=== PATIENT | male | born 1960 | race Caucasian/White ===

== ENCOUNTER 2022-03-14 13:27 | Observation (INO) | payer MEDICAID, SELFPAY ==
[2022-03-14] VITALS (18 sets, daily range): BP systolic 145–186; BP diastolic 82–119; PULSE 20–90; RESP 16–24; TEMP 36.4–37.1; O2SAT 92–98; BMI 32.8; BMI 29.6
--- NOTE | 2022-03-14 | ECG_ITS ---
APPROVED REPORT Exam: Resting ECG HR:69 bpm ECG Measurements Heart Rate 69 AXES RI 188 P 17 QRSd 119 QRS 1 QT 458 T -2 QTc 478 Conclusion SINUS RHYTHM POSSIBLE LEFT VENTRICULAR HYPERTROPHY LAE LAD Lateral ischemic changes Abnormal ECG Electronically signed by : Og Vega MD 03/15/2022 16:49:32
--- NOTE | 2022-03-14 13:47 | XR_ITS ---
FINAL REPORT TECHNIQUE: Single view chest CLINICAL HISTORY: Midsternal chest pain FINDINGS: A single view of the chest was obtained. The heart and mediastinum are within normal limits. There are mild bibasilar opacities which may represent pneumonia or atelectasis. There is no pneumothorax. There is a right 4th posterior rib fracture which is age indeterminate. IMPRESSION: Mild bibasilar opacities which may represent pneumonia or atelectasis. Age-indeterminate right 4th posterior rib fracture. No pneumothorax. Reviewed, Interpreted and Dictated by Helio Dee III, MD Transcribed by Deborah Serna Authenticated and . [facility]
[2022-03-14 14:00] LABS: Anion Gap 13.2 mEq/L (5-15); Blood Urea Nitrogen 17 mg/dl (9-20); Carbon Dioxide 31 mmol/L (22.0-30.0); Chloride 99 mmol/L (98-107); Creatinine Clearance Estimated 105 mL/min (50-200); Estimated Glomerular Filt Rate 76 ml/min (>60); GFR (African American) 92 ML/MIN (>60); Glucose 121 mg/dl (74-100); Potassium 4.2 mmoL/L (3.5-5.1); Sodium 139 mmol/L (136-145)
[2022-03-14 14:09] LABS: Basophils # 0.1 K/mm3 (0-0.2); Eosinophils # 0.3 K/mm3 (0.0-0.4); Eosinophils % 3.7 % (0.1-12.0); Hematocrit 40.1 % (42.0-52.0); Hemoglobin 13.1 g/dL (14.1-18.0); Lymphocytes # 0.7 K/mm3 (0.7-4.5); Lymphocytes % 10.4 % (10-50); Mean Corpuscular HGB Conc 32.8 g/dL (31.8-35.4); Mean Corpuscular Hemoglobin 28.4 pg (27.0-31.2); Mean Corpuscular Volume 86.7 fl (80-94); Mean Platelet Volume 9.4 fl (7.4-10.4); Monocytes # 0.5 K/mm3 (0.1-1.0); Monocytes % 7.7 % (1.7-9.3); Neutrophils # 5.4 K/mm3 (1.8-7.8); Neutrophils % 76.2 % (37.0-80.0); Platelet Count 157 K/mm3 (142-424); Red Blood Count 4.62 M/mm3 (4.60-6.20); Red Cell Distribution Width 14.9 % (11.5-17.5)
[2022-03-14 14:20] LABS: Troponin I < 0.01 ng/ml (0.00-0.034)
--- NOTE | 2022-03-14 15:49 | HMH.EDGENADL ---
Discharge Plan Disposition Patient Disposition: Admitted As Inpatient Condition: Fair Clinical Impressions Clinical Impression: Acute exacerbation of chronic obstructive pulmonary disease, Chest pain, Bilateral pleural effusion, Acute respiratory failure with hypoxia, CHF (congestive heart failure), Hypertension, uncontrolled Discharge ED Provider: Kirk Villegas General Adult HPI General Chief complaint: Chest Pain Stated complaint: chest pain Time Seen by Provider: 03/14/22 15:49 Mode of Arrival: Ambulatory Source of Information: Patient Limitations: No Limitations Description of Symptoms (Recalled from ER Triage Doc. by RN): pt to ed c/o chest pain. pt reports the pain is localized in his chest. pt states he has been having intermittent pain x1 week. pt reports mild shortness of breath. History of Present Illness HPI narrative: The patient complains of shortness of breath, chest pain, rhinorrhea, cough, states I have pneumonia . He is basing this upon his symptoms, he has not had tests. States that he has been sick for 1 week. His nose runs constantly and he coughs constantly. He does not know if he has had a fever. He has diffuse anterior chest pain and shortness of breath. He states that he had half of his right lung cut out 3 months ago at [facility] in [place] for cancer. He says he has not required any other treatment for the cancer, he says they were first going to see whether comes back before any other treatment is entertained. He is a smoker and has COPD. He has inhalers at home but not a nebulizer and is not on oxygen. He says he has a prior history of coronary artery disease with 2 stents. He has hypertension and hyperlipidemia. He says he just recently moved to this city, previously was living in [place] until 2 weeks ago. He does not have any care providers here in town. States he has chronic swelling of his legs, no recent change in leg swelling or leg pain. No hemoptysis. Related Data Allergies Allergy/AdvReac Type Severity Reaction Status Date / Time No Known Allergies Allergy Verified 03/14/22 13:47 [facility] Disclaimer: The information contained in this section may have been updated after the patient was seen, as this information can be updated by other users. Medical History (Updated 03/14/22 @ 20:31 by Kirk Villegas MD) CAD (coronary artery disease) CHF (congestive heart failure) COPD (chronic obstructive pulmonary disease) Lung cancer Tobacco abuse Surgical History (Updated 03/14/22 @ 20:05 by Pb Adan DNP) History of percutaneous coronary intervention Status post lobectomy of lung Social History (Updated 03/14/22 @ 20:17 by Pb Adan DNP) Smoking Status: Never smoker alcohol intake: never current occupational status: previously employed Travel in the last 8 weeks: None ROS Obtained: Yes Systems reviewed as appropriate & no additional complaints except as documented Constitutional Constitutional: Denies fever(s), Denies headache(s) and Denies weakness ENT Ears, Nose, Mouth, and Throat: Denies headache(s), Reports nasal discharge and Denies sore throat Cardiovascular Cardiovascular: Reports chest pain and Reports edema Respiratory Respiratory: Reports shortness of breath and Reports cough Gastrointestinal Gastrointestingal: Denies abdominal pain, constipation, diarrhea or vomiting Genitourinary Male Genitourinary: Denies difficulty urinating and Denies flank pain Musculoskeletal Musculoskeletal: Denies numbness Neurologic Neurologic: Denies headache(s), Denies numbness and Denies weakness Physical Exam General General appearance: alert and in no apparent distress Comment: Frequent cough Head Head exam: atraumatic and normocephalic Eye Eye exam: Present normal appearance and EOMI ENT ENT exam: Present mucous membranes moist Neck Neck exam: Present normal inspection and trachea midline Chest Chest inspection: Present normal inspe
--- NOTE | 2022-03-14 16:01 | CT_ITS ---
PROCEDURE INFORMATION: Exam: CTA Chest With Contrast Exam date and time: 03/14/2022 4:13 PM Age: 61 years old Clinical indication: Shortness of breath; Other: Chest pain; Prior surgery; Additional info: Cp, SOA, lung surgery 3 mo ago TECHNIQUE: Imaging protocol: Computed tomographic angiography of the chest with contrast. 3D rendering (Not supervised by radiologist): MIP and/or 3D reconstructed images were created by the technologist. Radiation optimization: All CT scans at this facility use at least one of these dose optimization techniques: automated exposure control; mA and/or kV adjustment per patient size (includes targeted exams where dose is matched to clinical indication); or iterative reconstruction. Contrast material: ISOVUE; Contrast volume: 70 ml; Contrast route: INTRAVENOUS (IV); COMPARISON: CR XR CHEST PORTABLE 03/14/2022 2:32 PM FINDINGS: Pulmonary arteries: No evidence of pulmonary embolism. Aorta: No evidence of aortic dissection. Lungs: Atelectatic changes noted within both lung bases. No focal pneumonia or pneumothorax. Pleural spaces: Bilateral pleural effusions, greater on the left. There is no evidence of pneumothorax. Pleural calcification noted within the lung bases bilaterally. Heart: Heart demonstrates mild diffuse enlargement. Coronary arteries: There is mild atherosclerotic calcification of the coronary arteries. Lymph nodes: Unremarkable. No enlarged lymph nodes. Bones/joints: The thoracic spine demonstrates mild degenerative changes at multiple levels. Healing fracture of the right posterior 4th rib. Soft tissues: There is nonspecific gynecomastia. IMPRESSION: 1. No evidence of pulmonary embolism. 2. No evidence of aortic dissection. 3. Mild cardiomegaly. 4. Bilateral pleural effusions, greater on the left. 5. Atelectatic changes noted within both lung bases. 6. There is no evidence of pneumothorax. 7. No focal pneumonia or pneumothorax.
[2022-03-14 16:10] LABS: Alanine Aminotransferase 13 U/L (12-78); Albumin Level 4.4 g/dl (3.5-5.0); Alkaline Phosphatase 115 U/L (38-126); Aspartate Amino Transferase 23 U/L (17-59); Bilirubin,Direct 0.2 mg/dl (0.0-0.4); Bilirubin,Indirect 0.4 mg/dL (0.0-0.9); Bilirubin,Total 0.6 mg/dl (0.2-1.3); Bilirubin,Unconjugated 0.4 mg/dL (0.0-1.1)
--- NOTE | 2022-03-14 16:54 | PC.NURSE ---
lab coming to draw cultures and lactic
[2022-03-14 17:38] LABS: Lactic Acid 0.9 mmol/L (0.7-2.1)
[2022-03-14 17:40] LABS: Coronavirus 19, PCR Not Detected (NotDetected); Influenza A, PCR Not Detected (NotDetected); Influenza B, PCR Not Detected (NotDetected)
[2022-03-14 17:50] LABS: Troponin I 0.02 ng/ml (0.00-0.034)
[2022-03-14 19:40] LABS: NT Pro Brain Natriuretic Pep. 2850 pg/mL (0-125)
[2022-03-14 19:44] LABS: Troponin I 0.02 ng/ml (0.00-0.034)
--- NOTE | 2022-03-14 19:55 | EXP.HP ---
History of Present Illness *Admission Date: 03/14/22 *Reason for visit:: Cough, shortness of air, runny nose *History of present illness: Mr. Sanabria is a 61-year-old male with a reported history of COPD, not home oxygen depdent, chronic tobacco use, reports recent diagnosis of Lung CA, sp removal right lung lobe, CAD, CHF. He presents to [facility] due to cough, runny nose, subjective fevers and chest pain that he reports has been ongoing for 1 week. He denies similar known sick contacts. He reports he has been taking multiple over the counter cough and cold medications with no improvement of symptoms. In the ER the patient had CBC and CMP that were unremarkable, covid and flu testing were negative. He was initially noted to be 96 % on room air, but dropped into the 80's during treatment and required 2L oxygen. He had a CT of the chest that showed bilateral pleural effusions greatest on the left. BNP was elevated at 2850. EKG showed NSR with BBB with no ST segment elevation or depression, rate was 69. Troponin was within normal limits at 0.02. In the ER he was given Rocephin, Azithromycin, nebulizers, steroids, diuretic. Blood pressure was elevated at 182/104. He received a dose of Labetalol 20 mg iv. The patient will be admitted with initial impression: AECOPD. He will be continued on the current treatment as started in the ER, sputum will be ordered. Viral respiratory panel. Records will be requested from [facility]. The plan of care was discussed with the patient on admission. The patient verbalized understanding and agreement with the plan of care. [facility] Disclaimer: The information contained in this section may have been updated after the patient was seen, as this information can be updated by other users. Medical History (Updated 03/15/22 @ 03:27 by Rosa Maria Ayala RN) CAD (coronary artery disease) CHF (congestive heart failure) COPD (chronic obstructive pulmonary disease) History of substance abuse Lung cancer Seizure disorder Tobacco abuse Surgical History History of colonoscopy History of percutaneous coronary intervention History of tracheostomy Status post lobectomy of lung Family History (Updated 03/14/22 @ 23:23 by Rosa Maria Aayla RN) No significant family history Social History (Updated 03/15/22 @ 03:27 by Rosa Maria Ayala RN) Smoking Status: Current every day smoker tobacco type: cigarettes packs per day: 1 smoking status start date: current smoker years smoked: 50 quit status: has quit before alcohol intake: never substance use type: former substance user counseling given: No (pt stated it was years ago and didnt want to bring it up ) current occupational status: previously employed Travel in the last 8 weeks: None marital status: single special justo needs: No agree to transfusion: No Review of Systems Review of Systems Review of systems:: pertinent systems reviewed and negative unless documented below Constitutional Constitutional: Reports fatigue and Reports fever(s) Eyes Eyes: Reports system reviewed and no additional complaints, except as documented ENT Ears, Nose, Mouth, and Throat: Reports nasal discharge *Cardiovascular Cardiovascular: Reports chest pain *Respiratory Respiratory: Reports chest congestion, Reports cough and Reports wheezing *Gastrointestinal Gastrointestinal: Reports system reviewed and no additional complaints, except as documented *Genitourinary Genitourinary: Reports system reviewed and no additional complaints, except as documented *Musculoskeletal Musculoskeletal: Reports system reviewed and no additional complaints, except as documented Integumentary/Breasts Skin/Breast: Reports system reviewed and no additional complaints, except as documented *Neurologic Neurologic: Reports system reviewed and no additional complaints, except as documented Psy
[2022-03-14 20:41] LABS: Adenovirus,PCR Not Detected (NotDetected); Bordetella Pertussis Not Detected (NotDetected); Chlamydophila Pneumoniae, PCR Not Detected (NotDetected); Coronavirus 19, PCR Not Detected (NotDetected); Coronavirus 229E Not Detected (NotDetected); Coronavirus NL63 Not Detected (NotDetected); Coronavirus OC43 Not Detected (NotDetected); Coronovirus HKU1,PCR Not Detected (NotDetected); Human Metapneumovirus Not Detected (NotDetected); Influenza A, PCR Not Detected (NotDetected); Influenza AH1, 2009 Not Detected (NotDetected); Influenza AH1, PCR Not Detected (NotDetected); Influenza AH3,PCR Not Detected (NotDetected); Influenza B, PCR Not Detected (NotDetected); Mycoplasma Pneumoniae, PCR Not Detected (NotDetected); Parainfluenza 1, PCR Not Detected (NotDetected); Parainfluenza 2, PCR Not Detected (NotDetected); Parainfluenza 3, PCR Not Detected (NotDetected); Parainfluenza 4, PCR Not Detected (NotDetected); Respiratory Syncytial Virus Not Detected (NotDetected)
--- NOTE | 2022-03-14 20:45 | PC.NURSE ---
pt arrived to floor via wheelchair @ 2040
--- NOTE | 2022-03-14 22:30 | PC.NURSE ---
pt not a good historian, pt was unable to verbalize what meds he is taking and stated he did not know the names of all of them, list obtained from outside pharmacy source and compared to an old list given by pt, list was from 01/22/22, reviewed last refills from outside pharmacy source.
[2022-03-15] VITALS (7 sets, daily range): BP systolic 124–127; BP diastolic 72–76; PULSE 70–90; RESP 16–18; TEMP 37; O2SAT 93–95; BMI 29.9
[2022-03-15 00:36] LABS: Rhinovirus/Enterovirus Detected (NotDetected)
--- NOTE | 2022-03-15 01:40 | PC.NURSE ---
sputum sent to lab, lab called and rejected as pt spit in medicine cup and placed in sterile cup.
--- NOTE | 2022-03-15 04:04 | PC.NURSE ---
PATIENT REFUSED FOR VITALS TO BE DONE . RN AWARE
--- NOTE | 2022-03-15 04:26 | PC.NURSE ---
noted pt 02 sats 89% while sleeping, 02 placed at 2L pnc at this time.
--- NOTE | 2022-03-15 05:50 | PC.NURSE ---
Addendum entered by Rosa Maria Ayala RN 03/15/22 05:55: telemetry reveals NSR with bbb, questionable inverted t wave. Original Note: pt admitted this shift, pt is alert and oriented x4, pt refused to have 4am v/s taken, pt is poor historian and med rec obtained from pharmacy via computer system, pt was unable to remember names of his med, list provided was unclear from pt, pt noted with bilateral wheezing audible, 02 sats were 88-89% on room air while sleeping, 02 placed at 2L during sleep, pt stated history if lung ca and lobectomy with tracheostomy placement, pt does not use 02 at home, bed alarm in place for history of falls, b/p 2400 was normotensive 145/82, pt with productive cough, awaiting sputum to send to lab, no other issues or concerns at this time.
--- NOTE | 2022-03-15 06:00 | CA_ITS ---
APPROVED REPORT EXAM: Comprehensive 2D, Doppler, and color-flow Echocardiogram [employer]venir [employer] Novelty Maker: Polly Pressley CRT Ht: 5 ft 7 in Wt: 210lbs BSA: 2.07 BP: 182/104 mmHg Indications: COPD, Shortness of Breath, bilateral pleural effusions, stent TDE poor images pt on back up in the bed 2D Dimensions LVOT 1.99 cm (M/F) 1.5-2.5 M-Mode Dimensions RVDd 3.95 cm (0.9-2.6) LA Diam 4.40 cm (1.9-4.0) LVDd 6.53 cm (3.5-5.7) Ao Diam 4.52 cm (2.0-3.7) LVDs 5.24 cm (3.5-5.7) IVSd 2.01 cm (0.6-1.1) PWd 0.85 cm (0.6-1.1) EF (Teich) 39.60% FS 19.80% EDV (Teich) 218.30 mL ESV (Teich) 131.80 mL LV Diastology MED E' 3.30 (< 7 cm/sec) MED A' 7.60 cm/s LAT E' 5.10 (<10 cm/sec) LAT A' 13.50 cm/s Aortic Valve AO Peak GR. 4.90 mmHg Left Ventricle Technically difficult study because of the patient factors and poor acoustic windows. Left atrium is mildly enlarged, left ventricle is normal size mild concentric left ventricular hypertrophy, estimated ejection fraction 50%, there is mild hypokinesis involving the distal septum and apical wall. Diastolic parameters are inconclusive. Right Ventricle Right atrium and right ventricle are mildly enlarged with normal contractility. Aortic Valve Aortic valve is minimally thickened and fibrosed there is no aortic stenosis aortic insufficiency. Mitral Valve Mitral valve has mitral annular calcification, there is no mitral stenosis, there is mild mitral regurgitation. Tricuspid Valve Tricuspid valve grossly normal, there is mild tricuspid regurgitation, tricuspid regurgitation jet velocity is inadequate for calculation of the right ventricular systolic pressure. Pulmonic Valve Pulmonic valve is poorly visualized. Great Vessels Aortic root is normal size. Inferior vena cava is poorly visualized. Pericardium No significant pericardial effusion noted. Conclusion 1. Technically difficult study because of the patient factors and poor acoustic windows. Mild biatrial enlargement, normal left ventricular size, estimated ejection fraction 50% with segmental wall motion abnormality described above. Diastolic parameters are inconclusive. 2. Mildly enlarged right ventricle with normal contractility. 3. Mild mitral and tricuspid regurgitation. 4. No significant pericardial effusion. 5. Inferior vena cava is poorly visualized. Electronically signed by : Stuart Geiger MD 03/15/2022 11:17:00
[2022-03-15 07:30] LABS: NT Pro Brain Natriuretic Pep. 3060 pg/mL (0-125)
--- NOTE | 2022-03-15 09:06 | HMH.PHAINT1 ---
Pharmacy Intervention Comments: MEDICATION RECONCILIATION COMPLETED ON PATIENT USING EXTERNAL FILL HISTORY FROM PHARMACY AND LUBNA REPORT. -NEYMAR GAMEZ, GALILEOD
--- NOTE | 2022-03-15 12:10 | PC.NURSE ---
pts suboxone x3 and heart monitor locked up in thread drawer pts room. pink med slip filed out an attached to pts report sheet. medication verified with [facility]
--- NOTE | 2022-03-15 14:43 | PC.NURSE ---
checked on pt around 1410, pt was standing at window dressed. no concerns voiced by pt. around 1430, pt was not in room and not on the floor. techs found pt on first floor walking inside. pt stated he went for a walk to stretch his legs and smoke a cigarette. advised pt to notify staff to ambulate and for safety reasons to remain on the floor at this time. pt cooperative and voiced understanding. no questions or concerns at this time. pt currently lying in bed bed watching tv, eating. cb within reach.
--- NOTE | 2022-03-15 15:01 | EXP.DC.SUM ---
General Admission date:: 03/14/22 Discharge date: 03/15/22 HPI HPI HPI: Mr. Sanabria is a 61-year-old male with a reported history of COPD, not home oxygen depdent, chronic tobacco use, reports recent diagnosis of Lung CA, sp removal right lung lobe, CAD, CHF. He presents to [facility] due to cough, runny nose, subjective fevers and chest pain that he reports has been ongoing for 1 week. He denies similar known sick contacts. He reports he has been taking multiple over the counter cough and cold medications with no improvement of symptoms. In the ER the patient had CBC and CMP that were unremarkable, covid and flu testing were negative. He was initially noted to be 96 % on room air, but dropped into the 80's during treatment and required 2L oxygen. He had a CT of the chest that showed bilateral pleural effusions greatest on the left. BNP was elevated at 2850. EKG showed NSR with BBB with no ST segment elevation or depression, rate was 69. Troponin was within normal limits at 0.02. In the ER he was given Rocephin, Azithromycin, nebulizers, steroids, diuretic. Blood pressure was elevated at 182/104. He received a dose of Labetalol 20 mg iv. The patient will be admitted with initial impression: AECOPD. He will be continued on the current treatment as started in the ER, sputum will be ordered. Viral respiratory panel. Records will be requested from [facility]. The plan of care was discussed with the patient on admission. The patient verbalized understanding and agreement with the plan of care. Hospital Course Hospital Course Hospital Course: 61-year-old male with reported history of COPD, not home oxygen dependent, chronic tobacco use, lung cancer, s/p lobectomy, CAD presents with one-week reports of cough, runny nose, subjective fevers and Shortness of air. Admitted for COPD exacerbation and new oxygen requirement. Symptoms defervesced overnight. On room air by morning. Ambulating without difficulty. Meeting criteria for discharge home to complete treatment for COPD exacerbation. Problems addressed as follows - COPD exacerbation In the ER the patient was documented in the 80's on room air. CT of the chest showed bilateral pleural effusions, diffuse wheezing on exam. Initiated on ceftriaxone and azithromycin. Tolerated nebulizers and steroids. Sputum culture obtained, pending at time of discharge. Respiratory PCR obtained showing positive for rhinovirus. Suspect etiology is viral for his COPD exacerbation. Satting 94% on room air on day of discharge. Plan to continue azithromycin for total of 5 days and steroids for 5 days. Initiated on Breo inhaler. Patient would benefit from establishing with PCP to manage his comorbidities. Will refer to [facility] primary care to establish as an outpatient. - Lung Cancer [facility], lobectomy in May 2021. Patient has done well since then. Continues to smoke however. Has not undergone any chemo or radiation since resection due to patient moving and being lost to care. Needs to be reestablished with [facility] for follow-up and further management. Defer to outpatient PCP - CHF, reported -Pleural effusions -CAD Echo obtained with the following findings: Conclusion 1.? Technically difficult study because of the patient factors and poor acoustic windows.? Mild biatrial enlargement, normal left ventricular size, estimated ejection fraction 50% with segmental wall motion abnormality described above.? Diastolic parameters are inconclusive. 2.? Mildly enlarged right ventricle with normal contractility. 3.? Mild mitral and tricuspid regurgitation. 4.? No significant pericardial effusion. 5.? Inferior vena cava is poorly visualized. -Diurese x1 during admission. Responded well. Patient already on goal-directed therapy for heart failure including anticoagulation therapy, JERMAINE, ARB, amiodarone, diuretic. Continue home regimen. Would benefi
--- NOTE | 2022-03-15 15:53 | HMH.PHAINT1 ---
Pharmacy Intervention Comments: DISCHARGE MEDICATION COUNSELING PROVIDED. DISCUSSED STARTING THE FOLLOWING: -AZITHROMYCIN (ANTIBIOTIC, DAILY, MAY CAUSE GI UPSET, TAKE WITH FOOD) -BREO (INHALER FOR SOB/COPD, DAILY, HAS STEROID IN IT SO RINSE MOUTH AFTER USE, MAY CAUSE THRUSH) -NICOTINE PATCH (DAILY, REMOVE OLD PATCH BEFORE PUTTING ON NEW ONE, ROTATE ADMIN SITES, MAY CAUSE BURN/SKIN IRRITATION IF PLACED REPEATEDLY ON SAME SITE, REMOVE PRIOR TO IMAGING) -PREDNISONE (STEROID, DAILY, TAKE WITH FOOD IN THE MORNING, MAY CAUSE INSOMNIA, HUNGER, THIRST, INCREASED BLOOD SUGAR). PATIENT VERBALIZED NO QUESTIONS AT THIS TIME.
--- NOTE | 2022-03-21 15:26 | CARE MANAGER ---
Contacted patient related to discharge from hospital. Patient went to follow up appointment and is doing better. Denies questions or concerns. MARCO Mason
== END 2022-03-15 16:07 | disposition home or self-care (01) ==
LOC: ER 19:40 → 2ND 21:21
PROVIDERS: Nurse Practitioner Family; Admitting Provider Internal Medicine Adolescent Medicine; Emergency Provider Emergency Medicine; Visit Provider Internal Medicine Adolescent Medicine
DX: J44.1 Chronic obstructive pulmonary disease with (acute) exacerbation (principal); C34.91 Malignant neoplasm of unspecified part of right bronchus or lung; F17.210 Nicotine dependence, cigarettes, uncomplicated; J90 Pleural effusion, not elsewhere classified; I25.10 Atherosclerotic heart disease of native coronary artery without angina pectoris; I50.9 Heart failure, unspecified; J96.01 Acute respiratory failure with hypoxia; I11.0 Hypertensive heart disease with heart failure; Z90.2 Acquired absence of lung [part of]; Z79.899 Other long term (current) drug therapy; Z20.822 Contact with and (suspected) exposure to COVID-19
CPT/HCPCS: 36415; 71045; 71275; 80048; 80076; 83605; 83880; 84484; 85025; 87040; 87070; 87077; 87186; 87205; 87581; 87632; 87798; 93005; 93306; 94640; 99285; C9803; G0378; J0456; J0696; Q9967; U0003; U0005

== ENCOUNTER → 2022-05-06 23:30 | Outpatient (CLI) | payer MEDICAID, SELFPAY ==
[2022-05-13 15:13] LABS: Testosterone, Total, LC/MS 250.1 ng/dL (264.0-916.0); Testosterone,Free 0.9 pg/mL (6.6-18.1)
== END ==
PROVIDERS: PCP Family Medicine; Visit Provider Family Medicine
DX: E29.1 Testicular hypofunction (principal); R53.83 Other fatigue
CPT/HCPCS: 84402; 84403

== ENCOUNTER → 2022-06-07 06:25 | Outpatient (CLI) | payer MEDICAID, SELFPAY ==
--- NOTE | 2022-06-07 | CA_ITS ---
APPROVED REPORT Exam: Pharmacologic Technologist: Katarina Caldwell, Ht: 5 ft 7 in Wt: 196 lbs BSA: 2.00 m2 HR: 58 bpm BP: 143/90 mmHg Medical History Medical History: HTN, Hyperlipidemia Medications: Asa,,,,, Atorvastatin,,,,, Ropinirole,,,,, SyMBICORT,,,,, Albuterol,,,,, KCL,,,,, Cefdinir,,,,, Fluoxetine,,,,, ElIQUIS,,,,, Amidarone,,,,, Cardiac Risk Factors: HTN, Hyperlipidemia, Smoking Stress Test Details Test: LEXISCAN HR Resting HR: 61 bpm Max Heart Rate (APMHR): 158.694313 bpm Max HR Achieved: 76 bpm Target HR (85% APMHR): 134.034121 bpm % of APMHR: 48.10 Recovery HR: 75 bpm BP Resting BP: 143/90 mmHg Max BP: 156/89 mmHg Recovery BP: 156.0/89.0 mmHg ECG Clinical Exercise duration: 04:05 min Highest Stage Achieved: Exercise capacity: 1.0 METs Stress ECG Conclusion During lexiscan pt experinced SOA and dizziness. No CP noted. Rare PAC/PVC noted. <1.5mm ST changes. Test Summary REST . . . . . . . Sitting REST 18:05 . . 61 . 143/ 90 . . Stage 1 . . . . . . . Myoview Injected Stage 1 01:00 . . 67 . . . . Stage 2 01:00 . . 67 . 120/ 74 . . Stage 3 01:00 . . 70 . 150/ 84 . . Stage 4 01:00 . . 75 . 152/ 93 . . Stage 4 01:05 . . 75 . 152/ 93 . Stop exercise at 04:05 RECOVERY 01:00 . . 71 . . . . RECOVERY 02:00 . . 71 . 156/ 89 . . RECOVERY 02:07 . . 70 . 156/ 89 . . Electronically signed by : Stuart Geiger MD 06/07/2022 11:39:53
--- NOTE | 2022-06-07 06:32 | NM_ITS ---
APPROVED REPORT Exam: Nuclear Stress Test Indication: CAD, 2 STENTS, HTN, TOB USE, FM HX, C.P., SOB Patient Location: Outpatient Stress Tech: Nita Javi NM Tech:ZEB Sanchez RT (R)(N)(M) Ht: 5 ft 7 in Wt: 200 lbs HR: 58 bpm BP: 143/90 mmHg BSA: 2.02 m2 TID: 1.11 BMI: 31.3 History: CAD, 2 STENTS, HTN, TOB USE, FM HX, C.P., SOB Procedure: Patient received 0.4 mg of intravenous Lexiscan, resting heart rate 58 bpm, resting blood pressure 143/90 mmHg, with Lexiscan maximum heart rate achieved was 72 bpm which is Less than 85 % of the maximum predicted heart rate and blood pressure was 120/74 mmHg. With Lexiscan, patient denied any complaint of chest pain. Electrocardiogram Resting electrocardiogram shows sinus rhythm nonspecific ST-T changes, with Lexiscan there is less than 1.[address] segment depression noted from the baseline EKG. The EKG portion of the Lexiscan is nondiagnostic. Cardiac Stress and Resting SPECT Images: Cardiac Stress and Resting SPECT images were obtained using technetium 99m Myoview 30.1 mCi stress and 10.98 mCi at rest. Gated SPECT analysis of segmental wall motion and calculation of the ejection fraction also done. Prone images were also obtained. Cardiac stress and rest SPECT may show fixed defect at the apex with normal contractile gated SPECT is likely secondary to apical thinning, no reversible ischemia seen, computer derived ejection fraction is 45% with no regional wall motion abnormality, right ventricle is normal size and contractility. Conclusion: 1. The EKG portion of the Lexiscan is nondiagnostic. 2. No scintigraphic evidence of reversible ischemia seen, computer derived ejection fraction is 45% with no regional wall motion abnormality, right ventricle is normal size and contractility. 3. Likely normal Lexiscan Myoview study. Electronically signed by : Stuart Geiger MD 06/07/2022 11:42:13
== END ==
LOC: RAD 06:26
PROVIDERS: PCP Family Medicine; Visit Provider Nurse Practitioner
DX: R06.00 Dyspnea, unspecified (principal); I20.8 Other forms of angina pectoris; R53.83 Other fatigue; R94.31 Abnormal electrocardiogram [ECG] [EKG]
CPT/HCPCS: 78452; 93017; A9502; J2785

== ENCOUNTER → 2022-07-12 13:23 | Outpatient (CLI) | payer MEDICAID, SELFPAY ==
--- NOTE | 2022-07-12 13:42 | CT_ITS ---
FINAL REPORT CLINICAL HISTORY: 6 Month FU COMPARISON: 03/14/2022 FINDINGS: Axial CT images of the chest were obtained with contrast. Coronal reformatted images were also obtained. This study was performed with techniques to keep radiation doses as low as reasonably achievable, (ALARA). Individualized dose reduction techniques using automated exposure control or adjustment of mA and/or KV according to the patient's size were employed. There is nonspecific mediastinal and right hilar adenopathy. Subcarinal node measures 31 mm, was 15 mm. Other nodes are similarly enlarged. No axillary mass is identified. On lung window images, no pulmonary mass or dominant pulmonary nodule is identified. No localized pulmonary inflammatory process is identified. Note is made of mild scarring. There is a chronic right lateral 4th rib fracture. There is chronic right pleural calcification. Limited images of the upper abdomen reveal gallstones with gallbladder wall thickening. IMPRESSION: Significant worsening of mediastinal adenopathy most worrisome for neoplastic involvement. Cholelithiasis with gallbladder wall thickening. Reviewed, Interpreted and Dictated by Helio Dee III, MD Transcribed by Lauryn Leung Authenticated and [facility]
[2022-07-12 14:02] LABS: Blood Urea Nitrogen 17 mg/dl (9-20); Estimated Glomerular Filt Rate 61 ml/min (>60); GFR (African American) 74 ML/MIN (>60)
== END ==
PROVIDERS: PCP Family Medicine; Visit Provider Family Medicine
DX: C34.91 Malignant neoplasm of unspecified part of right bronchus or lung (principal); J44.1 Chronic obstructive pulmonary disease with (acute) exacerbation
CPT/HCPCS: 36415; 71260; 82565; 84520; Q9967

== ENCOUNTER → 2022-08-01 07:15 | Outpatient (CLI) | payer MEDICAID, SELFPAY ==
--- NOTE | 2022-08-01 07:21 | CT_ITS ---
FINAL REPORT TECHNIQUE: Axial CT images were performed through the head. Coronal reformatted images were submitted. This study was performed with techniques to keep radiation doses as low as reasonably achievable (ALARA). Individualized dose reduction techniques using automated exposure control or adjustment of mA and/or kV according to the patient's size were employed. CLINICAL HISTORY: H/O lung cancer, poss mets. FINDINGS: The ventricles are normal in size. There is no evidence of hemorrhage. There is no mass or edema identified. There is no abnormal extra-axial fluid seen. The sinuses are well aerated. IMPRESSION: No acute intracranial process. Reviewed, Interpreted and Dictated by Vicente Escobedo MD Transcribed by Lauryn Leung Authenticated and [facility]
== END ==
PROVIDERS: PCP Family Medicine; Visit Provider Internal Medicine Pulmonary Disease
DX: R06.09 Other forms of dyspnea (principal); C34.90 Malignant neoplasm of unspecified part of unspecified bronchus or lung
CPT/HCPCS: 70450; 94060; 94618; 94726; 94729

== ENCOUNTER 2022-08-12 11:06 | Observation (INO) | payer MEDICAID, SELFPAY ==
[2022-08-12] VITALS (16 sets, daily range): BP systolic 97–141; BP diastolic 37–91; PULSE 63–77; RESP 17–24; TEMP 36.1–43; O2SAT 91–97; BMI 31.1
--- NOTE | 2022-08-12 08:41 | SUR.PREOP ---
Spoke to patient at 0715am. Notified him of his arrival time of 0915 and that he would need a responsible adult to accompany and drive him home after his procedure. Patient verbalized understanding and verified that he has been NPO after midnight.
--- NOTE | 2022-08-12 08:46 | SUR.PREOP ---
Patient arrived at 0815 for his procedure. States that he has no one available to accompany him for and drive him home. Notified via [facility] per Dr Pedro that we will still perform his procedure and provide transportation.
--- NOTE | 2022-08-12 08:57 | XR_ITS ---
FINAL REPORT TECHNIQUE: Single view chest CLINICAL HISTORY: COUGH COMPARISON: 07/12/2022 FINDINGS: A single view of the chest was obtained. The heart is enlarged. There is persistent mediastinal widening. Mild bibasilar opacities are unchanged which may represent atelectasis or scarring. There is no pneumothorax. Osseous structures are unremarkable. IMPRESSION: Stable bibasilar opacities which may represent atelectasis or scarring. Stable mediastinal widening. Reviewed, Interpreted and Dictated by Helio Dee III, MD Transcribed by Deborah Serna Authenticated and . [facility]
--- NOTE | 2022-08-12 09:05 | ECG_ITS ---
APPROVED REPORT Exam: Resting ECG HR:63 bpm ECG Measurements Heart Rate 63 AXES AL 194 P 59 QRSd 118 QRS -10 QT 453 T 34 QTc 459 Conclusion SINUS RHYTHM LATERAL MYOCARDIAL INFARCTION , PROBABLY OLD [40+ ms Q WAVE AND/OR ST/T ABNORMALITY IN I/aVL/V5/V6] ABNORMAL ECG UNCONFIRMED REPORT Electronically signed by : Og Vega MD 08/12/2022 21:14:43
[2022-08-12 09:30] LABS: Basophils % 0.1 % (0.1-2.0); Eosinophils % 0.3 % (0.1-12.0); Hematocrit 37.2 % (42.0-52.0); Hemoglobin 12.1 g/dL (14.1-18.0); Lymphocytes # 0.8 K/mm3 (0.7-4.5); Lymphocytes % 7.4 % (10-50); Mean Corpuscular HGB Conc 32.6 g/dL (31.8-35.4); Mean Corpuscular Hemoglobin 30.2 pg (27.0-31.2); Mean Corpuscular Volume 92.5 fl (80-94); Mean Platelet Volume 9.5 fl (7.4-10.4); Monocytes # 0.4 K/mm3 (0.1-1.0); Monocytes % 3.8 % (1.7-9.3); Neutrophils % 88.4 % (37.0-80.0); Platelet Count 164 K/mm3 (142-424); Red Blood Count 4.02 M/mm3 (4.60-6.20); Red Cell Distribution Width 14.3 % (11.5-17.5); White Blood Count 11.3 K/mm3 (4.8-10.8)
[2022-08-12 09:35] LABS: MANUAL DIFFERENTIAL MANUAL DIFFERENTIAL (MANUAL DIFF)
[2022-08-12 09:37] LABS: Chloride 96 mmol/L (98-107); Potassium 3.9 mmoL/L (3.5-5.1); Sodium 138 mmol/L (136-145)
[2022-08-12 09:40] LABS: Anion Gap 14.9 mEq/L (5-15); Blood Urea Nitrogen 17 mg/dl (9-20); Carbon Dioxide 31 mmol/L (22.0-30.0); Creatinine Clearance Estimated 101 mL/min (50-200); Estimated Glomerular Filt Rate 76 ml/min (>60); GFR (African American) 92 ML/MIN (>60)
[2022-08-12 09:41] LABS: Calcium 9.1 mg/dl (8.4-10.2); Glucose 134 mg/dl (74-100)
[2022-08-12 09:57] LABS: Lymphocytes % 5 % (10-50); Monocytes % 2 % (2-9); Neutrophils % 93 % (42-76); Platelet Estimate Normal; RBC Morphology Normal; Total Cells Counted 100
--- NOTE | 2022-08-12 10:09 | EXP.ANES.CKL ---
[facility] Disclaimer: The information contained in this section may have been updated after the patient was seen, as this information can be updated by other users. Medical History (Updated 08/12/22 @ 09:09 by Pallavi Murray RN) Adenocarcinoma, lung Allergic rhinitis, unspecified Anxiety Asthma Atrial fibrillation CAD (coronary artery disease) CHF (congestive heart failure) COPD (chronic obstructive pulmonary disease) Dyspnea on exertion Hilar lymphadenopathy History of cataract History of left heart catheterization (LHC) History of stroke History of substance abuse Hypertension Lung cancer Malignant neoplasm of right upper lobe of lung Mediastinal lymphadenopathy Metastatic lung cancer (metastasis from lung to other site) Neuroendocrine cancer Seizure disorder Shortness of Breath Smoking greater than 30 pack years Tobacco abuse Surgical History History of colonoscopy History of percutaneous coronary intervention History of tracheostomy Status post lobectomy of lung Family History (Updated 08/12/22 @ 09:10 by Pallavi Murray RN) Other Family history of cancer Family history of diabetes mellitus type II Family history of hypertension Family history of myocardial infarction Social History (Updated 08/12/22 @ 09:13 by Pallavi Murray RN) Smoking Status: Current every day smoker tobacco type: cigarettes packs per day: 1 smoking status start date: current smoker years smoked: 50 quit status: has quit before alcohol intake: never substance use type: former substance user counseling given: No (pt stated it was years ago and didnt want to bring it up ) current occupational status: retired Travel in the last 8 weeks: None household members: none housing: apartment lives independently: Yes marital status: single special justo needs: No agree to transfusion: No [facility] Anesthesia Checklist Patient Identification Patient Identification: Arm Band Structural Data Admitted From: Home Planned Operative Procedure/s: Brochoscopy with Biopsy and EBUS Consent for Planned Operative Procedure(s) Verified: Yes Verified Documents: Surgical Consent and History and Physical NPO Status Verified Time NPO: 05:30 (black coffee and [place]) Additional verifications Anesthesia Reactions: No Hx Blood Transfusions: No Blood Transfusion Reaction: No Airway Assessment C-Spine Mobility Assessed: Yes TMJ Mobility Assessed: Yes Dentition: Edentulous Neurological Assessment Level of Consciousness: Awake and Alert Anesthesia Plan Anesthesia Risk discussed: Yes Anesthesia Plan: Verified ASA Class: IV Anesthesia Type: General
--- NOTE | 2022-08-12 10:57 | EXP.PULM.CON ---
History of Present Illness History of present illness: Mr. Sanabria is a 62-year-old male current smoker greater than [id number] smoking prior history of lung cancer status post lobectomy is following a pulm body exertional dyspnea, COPD, lymphadenopathy presented to the hospital today for an elective bronchoscopy airway examination EBUS FNA transbronchial/endobronchial biopsy. [facility] Disclaimer: The information contained in this section may have been updated after the patient was seen, as this information can be updated by other users. Medical History (Updated 08/12/22 @ 10:59 by Shaheed Faria MD) Adenocarcinoma, lung Allergic rhinitis, unspecified Anxiety Asthma Atrial fibrillation CAD (coronary artery disease) CHF (congestive heart failure) COPD (chronic obstructive pulmonary disease) COPD mixed type Dyspnea on exertion Hilar lymphadenopathy History of cataract History of left heart catheterization (LHC) History of stroke History of substance abuse Hypertension Lung cancer Malignant neoplasm of right upper lobe of lung Mediastinal lymphadenopathy Metastatic lung cancer (metastasis from lung to other site) Neuroendocrine cancer Seizure disorder Shortness of Breath Smoking greater than 30 pack years Tobacco abuse Surgical History History of colonoscopy History of percutaneous coronary intervention History of tracheostomy Status post lobectomy of lung Family History (Updated 08/12/22 @ 09:10 by Pallavi Murray RN) Other Family history of cancer Family history of diabetes mellitus type II Family history of hypertension Family history of myocardial infarction Social History (Updated 08/12/22 @ 09:13 by Pallavi Murray RN) Smoking Status: Current every day smoker tobacco type: cigarettes packs per day: 1 smoking status start date: current smoker years smoked: 50 quit status: has quit before alcohol intake: never substance use type: former substance user counseling given: No (pt stated it was years ago and didnt want to bring it up ) current occupational status: retired Travel in the last 8 weeks: None household members: none housing: apartment lives independently: Yes marital status: single special justo needs: No agree to transfusion: No Review of Systems Review of Systems Review of systems:: pertinent systems reviewed and negative unless documented below Constitutional Constitutional: Reports fatigue Eyes Eyes: Reports system reviewed and no additional complaints, except as documented ENT Ears, Nose, Mouth, and Throat: Reports nasal discharge *Cardiovascular Cardiovascular: Reports chest pain *Respiratory Respiratory: Reports chest congestion, Reports cough, Reports excessive phlegm production and Reports wheezing *Gastrointestinal Gastrointestinal: Reports system reviewed and no additional complaints, except as documented *Genitourinary Genitourinary: Reports system reviewed and no additional complaints, except as documented *Musculoskeletal Musculoskeletal: Reports system reviewed and no additional complaints, except as documented Integumentary/Breasts Skin/Breast: Reports system reviewed and no additional complaints, except as documented *Neurologic Neurologic: Reports system reviewed and no additional complaints, except as documented Psychiatric Psychiatric: Reports system reviewed and no additional complaints, except as documented Endocrine Endocrine: Reports fatigue Hematologic/Lymphatic Hematologic/Lymphatic: Reports system reviewed and no additional complaints, except as documented Allergic/Immunologic Allergic/Immunologic: Reports wheezing Pulmonology Exam Inpatient Vital signs and Labs for Last 24 Hours: Temp Pulse Resp BP Pulse Ox 97.0 F L 65 17 141/91 H 95 08/12/22 09:24 08/12/22 09:24 08/12/22 09:24 08/12/22 09:24 08/12/22 09:24 Laboratory Results - last 24 hr 08/12/22 09:15: WBC 11.3 H,
--- NOTE | 2022-08-12 12:29 | EXP.BRONCH.N ---
Procedure: Date: 08/12/22 Patient Date of :: 1960 Procedure Performed:: Bronchoscopy airway examination, endobronchial biopsy and endobronchial ultrasound-guided fine-needle aspirate Indications:: Mediastinal and hilar lymphadenopathy Performing Provider:: Shaheed Faria MD Referring Provider:: Dr. Wilkes Sedation:: General anesthesia Procedure:: Bronchoscopy airway examination, endobronchial biopsy and endobronchial ultrasound-guided fine-needle aspiration: A clean EBUS bronchoscopy was advanced to the ET tube and lymph node surveillance was performed. Patient noted to have lymphadenopathy at stations 4R, station 7 and station 10 R. A total of 5 passes were performed at each of these lymph node stations. Pathology at bedside confirmed adequate lymphoid tissue with atypical cells. EBUS bronchoscopy retracted and a diagnostic bronchoscopy was advanced and airways were examined up to subsegmental bronchi. No acute airway abnormalities noted. No evidence of mucous plugging/old blood clot/active bleeding noted. Evidence of prior right upper lobectomy with granulation tissue noted. Bronchoalveolar lavage performed from the right middle lobe, total of 60 cc normal saline was instilled with return of 25 cc back. BAL fluid was sent for cell count differential, AFB fungal bacterial stain cultures along with cytopathology. Endobronchial biopsies performed of the granulation tissue. Patient experienced minimal bleeding at the site of the endobronchial biopsy, resolved with holding pressure and instillation of 2 cc of 1 in 10,000 epinephrine. No active bleeding was noted at the time of procedure completion. Findings:: Please see the procedure note Recommendations:: Admit the patient for observation as previously determined. Follow in pulmonary clinic in 5 to 7 days postprocedure. Complications:: No acute immediate complications Estimated blood obtained (mL): 10
--- NOTE | 2022-08-12 12:39 | EXP.ANES.I ---
[facility] Anesthesia Record Part I Anesthesia Record I Intake, IV Amount: 350 Estimated blood loss (mL): 10 Urine output (mL): 0 Blood Pressure: 97/58 SaO2: 94 Pulse Rate: 64 Respiratory Rate: 24 Temperature: 97.3 F Patient is:: Awake Stable to PACU at:: 12:34
--- NOTE | 2022-08-12 13:18 | EXP.HP ---
History of Present Illness *Admission Date: 08/12/22 *Reason for visit:: metastatic lung cancer, post bronchoscopy *History of present illness: Mr. Sanabria is a 62-year-old gentleman who is a current smoker with over 09-hffo-bmux history. Reports a history of lung cancer status post lobectomy but no further treatment reported. He has been following with pulmonology for exertional dyspnea, COPD, lymphadenopathy. Presented today for elective bronchoscopy and airway exam with EBUS including FNA and transbronchial/endobronchial biopsies. Procedure went well with no immediate complications. Pulmonology request patient be admitted for observation overnight Patient remains hemodynamically stable. Is on room air. Still recovering from anesthesia upon my evaluation and is drowsy. Denies any nausea or vomiting. Having scant hemoptysis after bronchoscopy, of note on chronic anticoagulation with Eliquis twice daily for A-fib. [facility] Disclaimer: The information contained in this section may have been updated after the patient was seen, as this information can be updated by other users. Medical History (Updated 08/12/22 @ 17:49 by Mike Huggins MD) Adenocarcinoma, lung Allergic rhinitis, unspecified Anxiety Asthma Atrial fibrillation CAD (coronary artery disease) CHF (congestive heart failure) COPD (chronic obstructive pulmonary disease) COPD mixed type Dyspnea on exertion Hilar lymphadenopathy History of cataract History of left heart catheterization (LHC) History of stroke History of substance abuse Hypertension Lung cancer Malignant neoplasm of right upper lobe of lung Mediastinal lymphadenopathy Metastatic lung cancer (metastasis from lung to other site) Neuroendocrine cancer Seizure disorder Shortness of Breath Smoking greater than 30 pack years Tobacco abuse Surgical History History of colonoscopy History of percutaneous coronary intervention History of tracheostomy Status post lobectomy of lung Family History (Updated 08/12/22 @ 09:10 by Pallavi Murray RN) Family history of cancer Family history of hypertension Family history of diabetes mellitus type II Family history of myocardial infarction Social History (Updated 08/12/22 @ 09:13 by Pallavi Murray RN) Smoking Status: Current every day smoker tobacco type: cigarettes packs per day: 1 smoking status start date: current smoker years smoked: 50 quit status: has quit before alcohol intake: never substance use type: former substance user counseling given: No (pt stated it was years ago and didnt want to bring it up ) current occupational status: retired Travel in the last 8 weeks: None household members: none housing: apartment lives independently: Yes marital status: single special justo needs: No agree to transfusion: No Review of Systems *Neurologic Neurologic: Reports system reviewed and no additional complaints, except as documented Meds Home Medications and Allergies Home Medications Medication Instructions Recorded Confirmed Type fluticasone propionate 50 2 spray intranasal DAILY Allergy 03/14/22 08/12/22 History mcg/actuation nasal symptoms spray,suspension ropinirole 1 mg tablet 1 mg PO HS Restless leg 03/14/22 08/12/22 History guaifenesin 600 mg tablet, 1,200 mg PO BID Allergy symptoms 05/07/22 08/12/22 History extended release 12 hr (Mucinex) atorvastatin 20 mg tablet 20 mg PO DAILY Cholesterol #90 tabs 06/10/22 08/12/22 Rx ergocalciferol (vitamin D2) 1,250 50,000 unit PO WEEKLY Supplement 08/09/22 08/12/22 Rx mcg (50,000 unit) capsule #30 caps loratadine 10 mg tablet (Allergy 10 mg PO DAILY Allergy symptoms 08/09/22 08/12/22 Rx Relief (loratadine)) #30 tabs albuterol sulfate 90 mcg/actuation 1 inh inhalation Q4HP PRN 08/12/22 08/12/22 History aerosol inhaler Shortness Of Breath amiodarone 200 mg tablet 200 mg PO DAILY Heart rate 08/12/22 08/12/22 His
--- NOTE | 2022-08-12 13:21 | PC.NURSE ---
arrived to floor from surgery by bed
--- NOTE | 2022-08-12 13:40 | SUR.PHASEI ---
1305- Report called to MARCO Key 1314- at bedside performing assessment on patient before transfer to med/surg floor. 1317- Patient transfered to med/surg room 203 with assistance of MARCO Connor in stable condition. Bed left in lowest position with wheels locked. All vital signs stable. Left under the care of MARCO Key.
[2022-08-12 14:16] LABS: Coronavirus 19, PCR Not Detected (NotDetected); Influenza A, PCR Not Detected (NotDetected); Influenza B, PCR Not Detected (NotDetected)
--- NOTE | 2022-08-12 14:46 | DIET.NUTRFU ---
Patient has no teeth, ordered regular consistency cardiac diet. Upon visit RD asked if he could tolerate regular meats and he said yes and wanted to continue regular diet. RD also reviewed softer foods available like cottage cheese, chicken and tuna salad. RD encouraged him to notify staff if he cannot tolerate something ordered and kitchen would replace with something softer
--- NOTE | 2022-08-12 15:02 | HMH.PHAINT1 ---
Pharmacy Intervention Comments: HOME MEDICATION LOST VERIFIED BY LIST FROM OUTSIDE PHARMACY, CONTACTING THE PATIENT'S BUSINESS PLANNING MANAGER, AND BY SPEAKING TO THE PATIENT. PATIENT CLAIMED THAT HE HAS NEVER TAKEN AMLODIPINE OR LOSARTAN AND HAS BEEN TAKING LISINOPRIL FOR BLOOD PRESSURE. WHEN ASKED ABOUT LEVETIRACETAM, PATIENT CLAIMED HE WAS NOT TAKING THAT EITHER AND DENIED HAVING A SEIZURE DISORDER. PATIENT STATED HE DOES TAKE ROPINIROLE EACH NIGHT BEFORE BED EVEN THOUGH IT DOES NOT APPEAR IN HIS RECENT FILL HISTORY.
--- NOTE | 2022-08-12 23:40 | PC.NURSE ---
Passed the patient his pills and did his assessment at 20:01 and he was a0x4 resting quietly. phlebotomist medical lab assistant states that at around 21:30 she went to get her food and ran into him as she was getting off the elevator. She noticed his door was open around 10:30 and went to check on him and realized he wasn't in the room. Charge nurse, mark anthony, called to let them know the patient had left the floor. Searched the other rooms and he is not in the hospital. I called his number and left him a message that the police would be called to check on him and his wellbeing. Police called at 22:55 and stated the would check on him and then come by the hospital. Pb Harley DNP called and is aware.
--- NOTE | 2022-08-13 01:49 | PC.NURSE ---
Called dispatch and they stated the patient removed his iv and he made it home safe. She stated he 'didn't want to stay the night so he just left.
--- NOTE | 2022-08-13 05:52 | EXP.DC.SUM ---
General Admission date:: 08/12/22 Discharge date: 08/12/22 HPI HPI HPI: Mr. Sanabria is a 62-year-old gentleman who is a current smoker with over 16-[id number] history. Reports a history of lung cancer status post lobectomy but no further treatment reported. He has been following with pulmonology for exertional dyspnea, COPD, lymphadenopathy. Presented today for elective bronchoscopy and airway exam with EBUS including FNA and transbronchial/endobronchial biopsies. Procedure went well with no immediate complications. Pulmonology request patient be admitted for observation overnight Patient remains hemodynamically stable. Is on room air. Still recovering from anesthesia upon my evaluation and is drowsy. Denies any nausea or vomiting. Having scant hemoptysis after bronchoscopy, of note on chronic anticoagulation with Eliquis twice daily for A-fib. Hospital Course Hospital Course Hospital Course: The patient was admitted for observation following bronchoscopy. At approximately 2300 called by MARCO Chahal. Informed that patient had left AMA. Police notified. Exam Data for Last 24 hours Vital signs and Labs for Last 24 Hours: Temp Pulse Resp BP Pulse Ox 98.3 F 72 18 132/68 97 08/12/22 20:15 08/12/22 20:15 08/12/22 20:15 08/12/22 20:15 08/12/22 20:15 Laboratory Results - last 24 hr 08/12/22 09:15: WBC 11.3 H, RBC 4.02 L, Hgb 12.1 L, Hct 37.2 L, MCV 92.5, MCH 30.2, MCHC 32.6, RDW 14.3, Plt Count 164, MPV 9.5, Neut % (Auto) 88.4 H, Lymph % (Auto) 7.4 L, Glasscock % (Auto) 3.8, Eos % (Auto) 0.3, Baso % (Auto) 0.1, Neut # (Auto) 10.0 H, Lymph # (Auto) 0.8, Glasscock # (Auto) 0.4, Eos # (Auto) 0.0, Baso # (Auto) 0.0, Total Counted 100, Neutrophils % (Manual) 93 H, Lymphocytes % (Manual) 5 L, Monocytes % (Manual) 2, Platelet Estimate Normal, RBC Morphology Normal 08/12/22 09:15: Sodium 138, Potassium 3.9, Chloride 96 L, Carbon Dioxide 31 H, Anion Gap 14.9, BUN 17, Creatinine 1.00, Estimated Creat Clear 101, Estimated GFR 76, Est GFR ( Amer) 92, Glucose 134 H, Calcium 9.1 08/12/22 14:07: SARS-CoV-2 (PCR) Not detected, Influenza A Untype (PCR) Not detected, Influenza Type B (PCR) Not detected I & O for Last 24 hours: Intake & Output 08/10/22 08/11/22 08/12/22 08/13/22 23:59 23:59 23:59 23:59 Intake Total 830 / 830 Output Total 0 / 0 Balance 830 / 830 Weight 92.986 kg Microbiology Reports for the Last 24 Hours: Microbiology 08/12/22 12:00 Bronchial Washings - Right Middle Gram Stain - Final 08/12/22 12:00 Bronchial Lavage - Left Middle Lobe - Final Not Reportable 08/12/22 12:00 Bronchial Lavage - Left Middle Lobe - Final Not Reportable 08/12/22 12:00 Bronchial Lavage - Left Middle Lobe - Final Not Reportable 08/12/22 12:00 Bronchial Lavage - Left Middle Lobe - Final Not Reportable 08/12/22 12:00 Bronchial Lavage - Left Middle Lobe - Final Not Reportable 08/12/22 12:00 Bronchial Lavage - Left Middle Lobe - Final Not Reportable 08/12/22 12:00 Bronchial Lavage - Left Middle Lobe AFB Susceptibility Moxifloxacin - Final Not Reportable 08/12/22 12:00 Bronchial Lavage - Left Middle Lobe - Final Not Reportable 08/12/22 12:00 Bronchial Lavage - Left Middle Lobe - Final Not Reportable 08/12/22 12:00 Bronchial Lavage - Left Middle Lobe - Final Not Reportable 08/12/22 12:00 Bronchial Lavage - Left Middle Lobe Microbiology Comment - Final Not Reportable Constitutional Comments: Did not perform discharge exam, patient left AMA. Results Data Completed and Pending Labs on day of discharge: Labs from last 24 hours 08/12/22 08/12/22 08/12/22 14:07
--- NOTE | 2022-08-14 08:33 | P.PNANES_ITS ---
[facility] Anesthesia Record Part II Anesthesia Record Part II Discharge Time: 13:17 Destination: Second Floor PACU nurse assessment reviewed?: Yes Patient Condition:: Good Anesthesia Complications:: None Swallowing reflex intact?: Yes Cyanosis?: No Blood Pressure: 127/73 Pulse Rate: 67 Temperature: 97.3 F Mental Status: Alert & Oriented Pain level:: 2 Nausea and/or vomitting:: None Intake, IV Amount: 0
[2022-08-14 08:34] VITALS: BP 127/73; PULSE 67; TEMP 36.3
[2022-08-16 11:05] LABS: Levetiracetam (Keppra) 5.9 ug/mL (10.0-40.0)
== END 2022-08-13 01:51 | disposition left against medical advice (07) ==
LOC: 2ND 11:08
PROVIDERS: Internal Medicine Pulmonary Disease; Admitting Provider Internal Medicine Adolescent Medicine; PCP Family Medicine; Visit Provider Internal Medicine Adolescent Medicine
DX: C7A.8 Other malignant neuroendocrine tumors (principal); I25.10 Atherosclerotic heart disease of native coronary artery without angina pectoris; C79.89 Secondary malignant neoplasm of other specified sites; J44.9 Chronic obstructive pulmonary disease, unspecified; I48.91 Unspecified atrial fibrillation; F17.210 Nicotine dependence, cigarettes, uncomplicated; Z79.899 Other long term (current) drug therapy; C34.11 Malignant neoplasm of upper lobe, right bronchus or lung; I10 Essential (primary) hypertension; Z79.01 Long term (current) use of anticoagulants; Z20.822 Contact with and (suspected) exposure to COVID-19
CPT/HCPCS: 31624; 31653; 36415; 71045; 80048; 80177; 85007; 85025; 87070; 87102; 87116; 87186; 87205; 87206; 87636; 89051; 93005; C9803; G0378; U0003; U0005

== ENCOUNTER 2022-10-24 14:46 | Inpatient (IN) | payer OTHER, SELFPAY ==
[2022-10-24] VITALS (19 sets, daily range): BP systolic 92–129; BP diastolic 64–94; PULSE 107–131; RESP 21–38; TEMP 36.2–38.1; O2SAT 94–100; BMI 25.8; BMI 24.7
--- NOTE | 2022-10-24 14:41 | ECG_ITS ---
APPROVED REPORT Exam: Resting ECG HR:127 bpm ECG Measurements Heart Rate 127 AXES QRSd 114 QRS -6 QT 350 T 142 QTc 425 Conclusion ATRIAL FIBRILLATION WITH RAPID VENTRICULAR RESPONSE POSSIBLE LATERAL MYOCARDIAL INFARCTION , OF INDETERMINATE AGE [30 ms Q WAVE IN I/aVL/V5/V6] ABNORMAL ECG INTERPRETATION BASED ON A DEFAULT AGE OF 40 YEARS UNCONFIRMED REPORT Electronically signed by : Og Vega MD 10/25/2022 16:17:35
--- NOTE | 2022-10-24 14:57 | XR_ITS ---
FINAL REPORT CLINICAL HISTORY: soa, tachypnea, found down COMPARISON: 10/04/2022 FINDINGS: The chest x-ray is hypoinflated. No acute pulmonary opacity is present. There is no evidence of effusion or pneumothorax. There are chronic changes in the lung bases. Mediastinum is unremarkable. Heart size is mildly enlarged.. IMPRESSION: No acute abnormality. Reviewed, Interpreted and Dictated by Herbert Gonzalez MD Transcribed by Sonam Campbell Authenticated and . [facility]
--- NOTE | 2022-10-24 15:00 | CT_ITS ---
FINAL REPORT TECHNIQUE: After the administration of oral and intravenous contrast, axial images were obtained through the abdomen and pelvis by computed tomography. The study was performed with techniques to keep radiation dose as low as reasonably achievable, (ALARA). Individual dose reduction techniques using automated exposure control or adjustment of mA and/or kV according to the patient's size were employed. CLINICAL HISTORY: abd pain diffuse, found down COMPARISON: None FINDINGS: Abdomen: No acute density is seen within the lung bases. Solid abdominal organs are unremarkable. The gallbladder is negative. No bowel obstruction is present. There is no free air. No fluid collection is seen. There is no adenopathy. Pelvis: The appendix is normal. No bowel wall thickening is present. There is no free fluid. No pelvic mass is seen. Urinary bladder is decompressed with a Solis catheter. IMPRESSION: No acute findings. Reviewed, Interpreted and Dictated by Herbert Gonzalez MD Transcribed by Alia Morales Authenticated and [facility]
--- NOTE | 2022-10-24 15:00 | CT_ITS ---
FINAL REPORT TECHNIQUE: Thin section axial CT with contrast with multiplanar reconstruction CLINICAL HISTORY: found down, ams, CP and cough/shortness of breath, trach history COMPARISON: CT chest 07/12/2022 and CTA chest 03/12/2022 FINDINGS: Pulmonary vessels enhance in normal fashion without evidence of embolism. Thoracic aorta shows no dissection or aneurysm. New spiculated density right lung apex may be inflammatory or neoplastic process. New nodular density lateral periphery right upper lobe measures 13 mm and could be neoplastic or inflammatory. There is pleural thickening with calcified pleural plaque right greater than left, similar to the prior study. No evidence of pneumothorax. There is no significant pleural effusion. There is no significant pericardial effusion. There is widespread mediastinal adenopathy, progressed from prior. There is also right thoracic inlet adenopathy and mild right axillary adenopathy. Right paratracheal node measures 40 x 27 mm, previously 35 x 18 mm. Left upper prevertebral lymph node on image 29 measures 26 x 21 mm, previously 16 x 9 mm. Right hilar adenopathy has also significantly progressed. No obvious rib fracture. IMPRESSION: No evidence of pulmonary embolism. No acute posttraumatic findings. Significant progression of adenopathy presumed neoplastic. New nodular density right upper lobe could be neoplastic or inflammatory. Reviewed, Interpreted and Dictated by Herbert Gonzalez MD Transcribed by Alia Morales Authenticated and [facility]
--- NOTE | 2022-10-24 15:00 | CT_ITS ---
FINAL REPORT CLINICAL HISTORY: ams, found down COMPARISON: 08/01/2022 FINDINGS: Mild generalized atrophy and chronic ischemic white matter changes are noted. No cortical edema is present. There is no mass or hemorrhage. Ventricles are normal. Bone windows show no skull fracture or obvious obstructive lesion. IMPRESSION: 1. No acute intracranial abnormality or obvious mass. 2. Atrophy and chronic ischemic white matter changes as above. Reviewed, Interpreted and Dictated by Herbert Gonzalez MD Transcribed by Sonam Campbell Authenticated and [facility]
--- NOTE | 2022-10-24 15:02 | HMH.EDGENADL ---
Discharge Plan Disposition Patient Disposition: Admitted Condition: Critical Chief Complaint: Altered Mental Status Clinical Impressions Clinical Impression: CHF (congestive heart failure), PNA (pneumonia), Sepsis, Acute hypoxemic respiratory failure, DKA (diabetic ketoacidosis) Discharge ED Provider: [facility] H[facility] General Chief complaint: Altered Mental Status Stated complaint: fall Time Seen by Provider: 10/24/22 14:54 Mode of Arrival: EMS Source of Information: Patient and EMS Limitations: Altered Mental Status Description of Symptoms (Recalled from ER Triage Doc. by RN): Presents via EMS d/t unknown amount of downtime. Pt found lying face down on the floor of his residence in urine. FS upon arrival high . History of Present Illness HPI narrative: This is a 62-year-old male with history of A-fib on Eliquis, COPD, previous tracheostomy from prolonged intubation, ACS, UT, CHF, hyperlipidemia, hypertension, type 2 diabetes presenting with altered mental status, found down for unknown period of time. Per EMS, a neighbor found patient down in his house. Stove burners were on. Patient was lying facedown on the carpet in a puddle of urine and was largely incoherent. GCS 11. Fingerstick too high to read with EMS. Patient started on fluid bolus, then brought to [facility] for further evaluation. On arrival, patient GCS 15 answering orientation questions, difficult to understand secondary to lethargy, but maintaining airway breathing approximately 40 times per minute. No discrete pain, states I have pain everywhere, but will not specify severity, character, or location. Related Data Home Medications Medication Instructions Recorded Confirmed fluticasone propionate 50 2 spray intranasal DAILY Allergy 03/14/22 09/27/22 mcg/actuation nasal symptoms spray,suspension ropinirole 1 mg tablet 1 mg PO HS Restless leg 03/14/22 09/27/22 albuterol sulfate 90 mcg/actuation 1 inh inhalation Q4HP PRN 08/12/22 09/27/22 aerosol inhaler Shortness Of Breath amiodarone 200 mg tablet 200 mg PO DAILY Heart rate 08/12/22 09/27/22 apixaban 5 mg tablet (Eliquis) 5 mg PO BID Atrial fibrillation 08/12/22 09/27/22 azelastine 205.5 mcg (0.15 %) 2 spray intranasal HS Allergy 08/12/22 09/27/22 nasal spray symptoms carvedilol 6.25 mg tablet 6.25 mg PO BID High blood pressure 08/12/22 09/27/22 lisinopril 10 mg tablet 10 mg PO DAILY High blood pressure 08/12/22 09/27/22 nicotine 21 mg/24 hr daily 21 mg transdermal DAILY Smoking 08/12/22 09/27/22 transdermal patch cessation pantoprazole 40 mg tablet,delayed 40 mg PO DAILY Acid reflux 08/12/22 09/27/22 release (Protonix) potassium chloride 10 mEq 10 meq PO DAILY Supplement 08/12/22 09/27/22 tablet,extended release torsemide 20 mg tablet 20 mg PO BID Fluid 08/12/22 09/27/22 umeclidinium 62.5 mcg-vilanterol 1 inh inhalation DAILY COPD 08/12/22 09/27/22 25 mcg/actuation powdr for inhalation (Anoro Ellipta) Previous Rx's Medication Instructions Recorded atorvastatin 20 mg tablet 20 mg PO DAILY Cholesterol #90 tabs 06/10/22 ondansetron 4 mg disintegrating 4 mg PO BID PRN nausea and 08/19/22 tablet vomiting #14 tabs docusate sodium 100 mg capsule 100 mg PO DAILY #30 caps 08/27/22 (Colace) zolpidem 10 mg tablet (Ambien) 10 mg PO HS PRN sleep #30 tabs 08/27/22 ergocalciferol (vitamin D2) 1,250 See Rx Instructions .Route 09/06/22 mcg (50,000 unit) capsule .COMPLEX #4 caps loratadine 10 mg tablet See Rx Instructions .Route 09/06/22 .COMPLEX #30 tabs dexamethasone 4 mg tablet 4 mg PO DAILY #30 tabs 09/27/22 levofloxacin 500 mg tablet 500 mg PO DAILY 10 days #10 tabs 09/27/22 oxycodone-acetaminophen 10 mg-325 1 tab PO TID PRN pain #60 tabs 09/27/22 mg tablet (Percocet) promethazine 6.25 mg-codeine 10 5 ml PO Q6H PRN Cough #118 mL 09/27/22 mg/5 mL syrup Allergies Allergy/AdvReac Type Severity Reaction Status Date / Time No Known Allergies Allergy
--- NOTE | 2022-10-24 15:07 | PC.NURSE ---
Patent airway, bilateral equal rise/fall of chest. Diminished breath sounds RLL. Tachypneic/Labored. Cap refill >3sec. Weak/thready radial/pedal pulses. Irregular cardiac rhythm, AFIB RVR. Dry mucous membranes/pallor. Abrasion/bruising noted to medial aspect of right foot. Soft tissue swelling noted to right clavicle.
--- NOTE | 2022-10-24 15:09 | CT_ITS ---
FINAL REPORT TECHNIQUE: Thin section axial CT with sagittal reconstruction without contrast CLINICAL HISTORY: found down, AMS FINDINGS: No fracture is seen. Alignment is normal. There is moderate degenerative disc disease present. No obvious bony spinal canal stenosis is present. No gross disk abnormalities are seen. There is bony foraminal narrowing at multiple levels. IMPRESSION: No fracture or malalignment Reviewed, Interpreted and Dictated by Herbert Gonzalez MD Transcribed by Sonam Campbell Authenticated and [facility]
[2022-10-24 15:10] LABS: Basophils % 0.1 % (0.1-2.0); Chloride 105 mmol/L (98-107); Eosinophils % 0.1 % (0.1-12.0); Hematocrit 52.7 % (42.0-52.0); Hemoglobin 16.3 g/dL (14.1-18.0); Lymphocytes # 0.9 K/mm3 (0.7-4.5); Lymphocytes % 4.7 % (10-50); Mean Corpuscular HGB Conc 30.8 g/dL (31.8-35.4); Mean Corpuscular Hemoglobin 28.3 pg (27.0-31.2); Mean Corpuscular Volume 91.7 fl (80-94); Mean Platelet Volume 11.6 fl (7.4-10.4); Monocytes # 0.9 K/mm3 (0.1-1.0); Monocytes % 4.5 % (1.7-9.3); Neutrophils # 17.7 K/mm3 (1.8-7.8); Neutrophils % 90.6 % (37.0-80.0); Platelet Count 158 K/mm3 (142-424); Red Blood Count 5.75 M/mm3 (4.60-6.20); Red Cell Distribution Width 14.6 % (11.5-17.5); Sodium 148 mmol/L (136-145); White Blood Count 19.5 K/mm3 (4.8-10.8)
[2022-10-24 15:11] LABS: Potassium 4.3 mmoL/L (3.5-5.1)
[2022-10-24 15:11] LABS: Microscopic, Urine URINE MICROSCOPIC (MICROSCOPIC)
[2022-10-24 15:13] LABS: Alanine Aminotransferase 57 U/L (12-78); Albumin Level 4.3 g/dl (3.5-5.0); Albumin/Globulin Ratio 1.5 (1.1-1.8); Alkaline Phosphatase 150 U/L (38-126); Anion Gap 23.3 mEq/L (5-15); Aspartate Amino Transferase 63 U/L (17-59); Bilirubin,Total 1.1 mg/dl (0.2-1.3); Blood Urea Nitrogen 56 mg/dl (9-20); Calcium 10.1 mg/dl (8.4-10.2); Carbon Dioxide 24 mmol/L (22.0-30.0); Creatinine Clearance Estimated 52 mL/min (50-200); Estimated Glomerular Filt Rate 38 ml/min (>60); GFR (African American) 46 ML/MIN (>60); Globulin 2.9 g/dL (1.3-3.2); Lipase 142 U/L (23-300); MANUAL DIFFERENTIAL MANUAL DIFFERENTIAL (MANUAL DIFF); Total Protein,Serum 7.2 g/dl (6.3-8.2)
[2022-10-24 15:14] LABS: Appearance,Urine CLEAR (Clear); Bilirubin,Urine Negative (Negative); Blood, Urine 1+ (Negative); Color,Urine YELLOW (Yellow); Glucose,Urine (UA) 3+ (Negative); Ketones,Urine 1+ (Negative); Leukocyte Esterase,Urine Negative (Negative); Nitrate,Urine Negative (Negative); Protein,Urine Negative (Negative); Urobilinogen,Urine 0.2 EU/dl (0.2)
[2022-10-24 15:15] LABS: Carboxyhemoglobin 1.8 (0.0-5.0); VBG Base Excess -7.9 mmol/L (-2.4-2.3); VBG HCO3 17.5 mmol/L (23-30); VBG PCO2 31.6 mmol/L (35-51); VBG PH 7.36 mmol/L (7.31-7.41); VBG PO2 170.9 mmol/L (28-40); VBG Total CO2 18.5 mmol/L (23-27)
[2022-10-24 15:19] LABS: Lactic Acid 3.5 mmol/L (0.7-2.1)
[2022-10-24 15:20] LABS: Acetaminophen < 10 ug/ml (10-30); Acetone, Serum (Rapid) Large (None Detect); Salicylate < 1.0 mg/dL (2.0-20.0)
[2022-10-24 15:22] LABS: Creatine Kinase 443 U/L (55-170)
[2022-10-24 15:23] LABS: Glucose 892 mg/dl (74-100); NT Pro Brain Natriuretic Pep. 4190 pg/mL (0-125)
--- NOTE | 2022-10-24 15:23 | PC.NURSE ---
critical lab value reported to MD Marin, glucose 892
--- NOTE | 2022-10-24 15:25 | EXP.PHA.CONS ---
Pharmacy Consult Date: 10/24/22 Time: 15:25 Referring provider: DR COPELAND Reason for Consult:: VANCOMYCIN DOSING CONSULT Allergies Allergy/AdvReac Type Severity Reaction Status Date / Time No Known Allergies Allergy Verified 09/27/22 10:03 Home Medications Medication Instructions Recorded Confirmed Type fluticasone propionate 50 2 spray intranasal DAILY Allergy 03/14/22 09/27/22 History mcg/actuation nasal symptoms spray,suspension ropinirole 1 mg tablet 1 mg PO HS Restless leg 03/14/22 09/27/22 History atorvastatin 20 mg tablet 20 mg PO DAILY Cholesterol #90 tabs 06/10/22 09/27/22 Rx albuterol sulfate 90 mcg/actuation 1 inh inhalation Q4HP PRN 08/12/22 09/27/22 History aerosol inhaler Shortness Of Breath amiodarone 200 mg tablet 200 mg PO DAILY Heart rate 08/12/22 09/27/22 History apixaban 5 mg tablet (Eliquis) 5 mg PO BID Atrial fibrillation 08/12/22 09/27/22 History azelastine 205.5 mcg (0.15 %) 2 spray intranasal HS Allergy 08/12/22 09/27/22 History nasal spray symptoms carvedilol 6.25 mg tablet 6.25 mg PO BID High blood pressure 08/12/22 09/27/22 History lisinopril 10 mg tablet 10 mg PO DAILY High blood pressure 08/12/22 09/27/22 History nicotine 21 mg/24 hr daily 21 mg transdermal DAILY Smoking 08/12/22 09/27/22 History transdermal patch cessation pantoprazole 40 mg tablet,delayed 40 mg PO DAILY Acid reflux 08/12/22 09/27/22 History release (Protonix) potassium chloride 10 mEq 10 meq PO DAILY Supplement 08/12/22 09/27/22 History tablet,extended release torsemide 20 mg tablet 20 mg PO BID Fluid 08/12/22 09/27/22 History umeclidinium 62.5 mcg-vilanterol 1 inh inhalation DAILY COPD 08/12/22 09/27/22 History 25 mcg/actuation powdr for inhalation (Anoro Ellipta) ondansetron 4 mg disintegrating 4 mg PO BID PRN nausea and 08/19/22 09/27/22 Rx tablet vomiting #14 tabs docusate sodium 100 mg capsule 100 mg PO DAILY #30 caps 08/27/22 09/27/22 Rx (Colace) zolpidem 10 mg tablet (Ambien) 10 mg PO HS PRN sleep #30 tabs 08/27/22 09/27/22 Rx ergocalciferol (vitamin D2) 1,250 See Rx Instructions .Route 09/06/22 09/27/22 Rx mcg (50,000 unit) capsule .COMPLEX #4 caps loratadine 10 mg tablet See Rx Instructions .Route 09/06/22 09/27/22 Rx .COMPLEX #30 tabs dexamethasone 4 mg tablet 4 mg PO DAILY #30 tabs 09/27/22 09/27/22 Rx levofloxacin 500 mg tablet 500 mg PO DAILY 10 days #10 tabs 09/27/22 09/27/22 Rx oxycodone-acetaminophen 10 mg-325 1 tab PO TID PRN pain #60 tabs 09/27/22 09/27/22 Rx mg tablet (Percocet) promethazine 6.25 mg-codeine 10 5 ml PO Q6H PRN Cough #118 mL 09/27/22 09/27/22 Rx mg/5 mL syrup New Prescriptions to Start Prescriptions: Height: 1.83 m Weight: 86.319 kg Laboratory Results:: Laboratory Results - last 24 hr 10/24/22 14:40: WBC 19.5 H, RBC 5.75, Hgb 16.3, Hct 52.7 H, MCV 91.7, MCH 28.3, MCHC 30.8 L, RDW 14.6, Plt Count 158, MPV 11.6 H, Neut % (Auto) 90.6 H, Lymph % (Auto) 4.7 L, [place] % (Auto) 4.5, Eos % (Auto) 0.1, Baso % (Auto) 0.1, Neut # (Auto) 17.7 H, Lymph # (Auto) 0.9, [place] # (Auto) 0.9, Eos # (Auto) 0.0, Baso # (Auto) 0.0, Sodium 148 H, Potassium 4.3, Chloride 105, Carbon Dioxide 24, Anion Gap 23.3 H, BUN 56 H, Creatinine 1.80 H, Estimated Creat Clear 52, Estimated GFR 38 L, Est GFR ( Amer) 46 L, Glucose 892 H*, Lactate 3.5 H, Calcium 10.1, Total Bilirubin 1.1, AST 63 H, ALT 57, Alkaline Phosphatase 150 H, Total Creatine Kinase 443 H, NT-Pro-B Natriuret Pep 4190 H, Total Protein 7.2, Albumin 4.3, Globulin 2.9, Albumin/Globulin Ratio 1.5, Lipase 142, Salicylates < 1.0 L, Acetaminophen < 10 L, Acetone Level Large 10/24/22 15:00: VBG pH 7.36, VBG pCO2 31.6 L, VBG pO2 170.9 H, VBG HCO3 17.5 L, VBG Total CO2 18.5 L, VBG O2 Saturation 99.0 H, VBG Base Excess -7.9 L, Carboxyhemoglobin 1.8 10/24/22 15:06: Urine Color Yellow, Urine Appearance Clear, Urine pH 6.0, Ur Specific [place] 1.010, Urine Protein Negative, Urine Glucose (UA) 3+, Urine Ketones 1+, Urine Blood 1+,
--- NOTE | 2022-10-24 15:25 | PC.NURSE ---
Pt to CT with RN and (2) Rad techs.
[2022-10-24 15:26] LABS: Benzodiazepines Screen,Urine Negative ng/ml (<200)
[2022-10-24 15:27] LABS: Amphetamine/Metha Screen,Urine Negative ng/ml (<1000)
[2022-10-24 15:28] LABS: Barbiturates Screen,Urine Negative ng/ml (<200); Cannabinoid Screen,Urine Negative ng/ml (<50)
[2022-10-24 15:29] LABS: Cocaine Screen,Urine Negative ng/ml (<300)
[2022-10-24 15:30] LABS: Methadone Screen,Urine Negative ng/ml (<300); Opiate Screen,Urine Positive ng/ml (<300)
[2022-10-24 15:31] LABS: Phencyclidine Screen,Urine Negative ng/ml (<25)
[2022-10-24 15:32] LABS: Bacteria,Urine Trace /lpf; Squamous Epithelial Cell,Urine Occasional #/hpf (0-5); WBC,Urine Occasional #/hpf (0-3)
[2022-10-24 15:37] LABS: Hemoglobin A1C 10.2 % (4.0-6.0)
[2022-10-24 15:42] LABS: Troponin I 0.11 ng/ml (0.00-0.034)
--- NOTE | 2022-10-24 15:44 | PC.NURSE ---
speaking with hospitalist dr. boswell about possible admission
--- NOTE | 2022-10-24 15:47 | PC.NURSE ---
called care management for bed assignment
[2022-10-24 16:00] LABS: Thyroid Stimulating Hormone 0.51 uIU/mL (0.465-4.68)
--- NOTE | 2022-10-24 16:03 | PC.NURSE ---
Lab at bedside.
[2022-10-24 16:11] LABS: Lymphocytes % 4 % (10-50); Monocytes % 4 % (2-9); Neutrophils % 92 % (42-76); Platelet Estimate Normal; RBC Morphology Normal; Total Cells Counted 100
--- NOTE | 2022-10-24 16:13 | PC.NURSE ---
Addendum entered by Maria Luisa Oneil RN 10/24/22 16:25: Attempted report x 1 Original Note: MARCO Ruiz
[2022-10-24 16:25] LABS: T4 (Thyroxine) 10.4 ug/dl (5.53-11.0)
[2022-10-24 16:29] LABS: Ammonia < 9 umol/L (9-30)
--- NOTE | 2022-10-24 16:36 | PC.NURSE ---
Report given to Rose Barney RN
--- NOTE | 2022-10-24 17:24 | EXP.HP ---
History of Present Illness *Admission Date: 10/24/22 *Reason for visit:: confusion, found down *History of present illness: Mr. Sanabria is a 62-year-old male with history of A-fib, COPD, CHF, hyperlipidemia, hypertension, lung cancer who presented to the ER with altered mental status. Patient was reportedly found down at home by his neighbor. Burners were on in his house and he was lying facedown on the carpet in a puddle of urine. Largely incoherent at that time. EMS was contacted and they brought the patient to [facility] for further evaluation. GCS of 15 on arrival. Fingerstick glucose read high . Labs obtained showing severely elevated glucose, high anion gap, and concern for DKA. Started on insulin drip and DKA protocol. Additionally has a white cell count of 19,000 and tachycardia meeting SIRS criteria. In the ER he complained of pain everywhere. Medicine was consulted for admission. After arriving to the floor, patient opens eyes in response to voice but not able to give meaningful answers to questions. Temperature is elevated to 100.3. Had prior been answering questions to nursing prior to my evaluation. Appears quite fatigued. Currently on 3 L nasal cannula oxygen, wears oxygen at home, unsure of his baseline. Admitted to stepdown unit for further management. [facility] Disclaimer: The information contained in this section may have been updated after the patient was seen, as this information can be updated by other users. Medical History Adenocarcinoma, lung Allergic rhinitis, unspecified Anxiety Asthma Atrial fibrillation CAD (coronary artery disease) CHF (congestive heart failure) COPD (chronic obstructive pulmonary disease) COPD mixed type Dyspnea on exertion Hilar lymphadenopathy History of cataract History of left heart catheterization (LHC) History of stroke History of substance abuse Hypertension Lung cancer Malignant neoplasm of right upper lobe of lung Mediastinal lymphadenopathy Metastatic lung cancer (metastasis from lung to other site) Neuroendocrine cancer Seizure disorder Shortness of Breath Smoking greater than 30 pack years Tobacco abuse Surgical History History of colonoscopy History of percutaneous coronary intervention History of tracheostomy Status post lobectomy of lung Family History Family history of cancer Family history of hypertension Family history of diabetes mellitus type II Family history of myocardial infarction Social History Smoking Status: Smoker, status unknown tobacco type: cigarettes packs per day: 1 smoking status start date: current smoker years smoked: 50 quit status: has quit before alcohol intake: never substance use type: former substance user counseling given: No (pt stated it was years ago and didnt want to bring it up ) current occupational status: retired Travel in the last 8 weeks: None household members: none housing: apartment lives independently: Yes marital status: single special justo needs: No agree to transfusion: No Meds Home Medications and Allergies Home Medications Medication Instructions Recorded Confirmed Type fluticasone propionate 50 2 spray intranasal DAILY Allergy 03/14/22 09/27/22 History mcg/actuation nasal symptoms spray,suspension ropinirole 1 mg tablet 1 mg PO HS Restless leg 03/14/22 09/27/22 History atorvastatin 20 mg tablet 20 mg PO DAILY Cholesterol #90 tabs 06/10/22 09/27/22 Rx albuterol sulfate 90 mcg/actuation 1 inh inhalation Q4HP PRN 08/12/22 09/27/22 History aerosol inhaler Shortness Of Breath amiodarone 200 mg tablet 200 mg PO DAILY Heart rate 08/12/22 09/27/22 History apixaban 5 mg tablet (Eliquis) 5 mg PO BID Atrial fibrillation 08/12/22 09/27/22 History azelastine 205.5 mcg (0.15
[2022-10-24 17:33] LABS: Anion Gap 19.7 mEq/L (5-15); Blood Urea Nitrogen 52 mg/dl (9-20); Calcium 9.2 mg/dl (8.4-10.2); Carbon Dioxide 22 mmol/L (22.0-30.0); Chloride 115 mmol/L (98-107); Creatinine Clearance Estimated 53 mL/min (50-200); Estimated Glomerular Filt Rate 41 ml/min (>60); GFR (African American) 50 ML/MIN (>60); Potassium 3.7 mmoL/L (3.5-5.1)
[2022-10-24 17:42] LABS: Glucose 633 mg/dl (74-100); Sodium 153 mmol/L (136-145)
--- NOTE | 2022-10-24 17:44 | PC.NURSE ---
LAB CALLED. GLUCOSE 633. NA+ 153. INSULIN DRIP WAS TITRATED FROM 8 UNITS TO 12 UNITS. HOSPITALIST NOTIFIED.
[2022-10-24 18:07] LABS: Troponin I 0.11 ng/ml (0.00-0.034)
[2022-10-24 18:33] LABS: POC Glucose,Bedside 402 (70-110)
[2022-10-24 19:06] LABS: Reflex Lactic Add Lactic Reflex
[2022-10-24 19:48] LABS: Lactic Acid Follow Up (RFLX 1) 3.8 mmol/L (0.7-2.1)
[2022-10-24 21:24] LABS: Chloride 121 mmol/L (98-107)
[2022-10-24 21:28] LABS: Anion Gap 8.9 mEq/L (5-15); Blood Urea Nitrogen 50 mg/dl (9-20); Calcium 9.7 mg/dl (8.4-10.2); Carbon Dioxide 30 mmol/L (22.0-30.0); Creatinine Clearance Estimated 64 mL/min (50-200); Estimated Glomerular Filt Rate 51 ml/min (>60); GFR (African American) 62 ML/MIN (>60); Glucose 162 mg/dl (74-100)
[2022-10-24 21:30] LABS: Reflex Lactic (2 hrs) Add Lactic Reflex
[2022-10-24 21:34] LABS: Sodium 157 mmol/L (136-145)
[2022-10-24 21:35] LABS: Potassium 2.9 mmoL/L (3.5-5.1)
[2022-10-24 21:40] LABS: Troponin I 0.16 ng/ml (0.00-0.034)
--- NOTE | 2022-10-24 21:44 | PC.NURSE ---
Spoke to MARSHA Qureshi via phone call for verbal orders to stop Insulin gtt, start SS insulin, give 10mEq K run x2, keep maintenance fluids as ordered.
[2022-10-24 22:09] LABS: Lactic Acid Follow up (RFLX 2) 2.5 mmol/L (0.7-2.1)
[2022-10-25] VITALS (16 sets, daily range): BP systolic 100–138; BP diastolic 70–98; PULSE 105–125; RESP 14–24; TEMP 36.4–37.1; O2SAT 93–100; BMI 24.7
[2022-10-25 01:21] LABS: Chloride 118 mmol/L (98-107)
[2022-10-25 01:22] LABS: Potassium 3.3 mmoL/L (3.5-5.1)
[2022-10-25 01:24] LABS: Blood Urea Nitrogen 46 mg/dl (9-20); Creatinine Clearance Estimated 69 mL/min (50-200); Estimated Glomerular Filt Rate 56 ml/min (>60); GFR (African American) 68 ML/MIN (>60)
[2022-10-25 01:25] LABS: Anion Gap 11.3 mEq/L (5-15); Calcium 9.3 mg/dl (8.4-10.2); Carbon Dioxide 29 mmol/L (22.0-30.0); Glucose 169 mg/dl (74-100)
[2022-10-25 01:29] LABS: Sodium 155 mmol/L (136-145)
[2022-10-25 05:23] LABS: Troponin I 0.18 ng/ml (0.00-0.034)
[2022-10-25 06:29] LABS: Basophils % 0.1 % (0.1-2.0); Eosinophils # 0.1 K/mm3 (0.0-0.4); Eosinophils % 0.3 % (0.1-12.0); Hematocrit 43.2 % (42.0-52.0); Lymphocytes # 1.8 K/mm3 (0.7-4.5); Lymphocytes % 7.5 % (10-50); Mean Corpuscular HGB Conc 32.3 g/dL (31.8-35.4); Mean Corpuscular Hemoglobin 28.9 pg (27.0-31.2); Mean Corpuscular Volume 89.5 fl (80-94); Mean Platelet Volume 11.2 fl (7.4-10.4); Monocytes # 1.3 K/mm3 (0.1-1.0); Monocytes % 5.4 % (1.7-9.3); Neutrophils # 21.3 K/mm3 (1.8-7.8); Neutrophils % 86.8 % (37.0-80.0); Platelet Count 112 K/mm3 (142-424); Red Blood Count 4.82 M/mm3 (4.60-6.20); Red Cell Distribution Width 14.7 % (11.5-17.5); White Blood Count 24.6 K/mm3 (4.8-10.8)
[2022-10-25 06:31] LABS: MANUAL DIFFERENTIAL MANUAL DIFFERENTIAL (MANUAL DIFF)
[2022-10-25 06:33] LABS: Alanine Aminotransferase 43 U/L (12-78); Albumin Level 3.4 g/dl (3.5-5.0); Albumin/Globulin Ratio 1.3 (1.1-1.8); Alkaline Phosphatase 98 U/L (38-126); Anion Gap 9.5 mEq/L (5-15); Aspartate Amino Transferase 74 U/L (17-59); Bilirubin,Total 0.6 mg/dl (0.2-1.3); Blood Urea Nitrogen 41 mg/dl (9-20); Calcium 8.8 mg/dl (8.4-10.2); Carbon Dioxide 28 mmol/L (22.0-30.0); Chloride 121 mmol/L (98-107); Creatinine Clearance Estimated 82 mL/min (50-200); Estimated Glomerular Filt Rate 68 ml/min (>60); GFR (African American) 82 ML/MIN (>60); Globulin 2.6 g/dL (1.3-3.2); Glucose 174 mg/dl (74-100); Magnesium 2.5 mg/dl (1.6-2.3); Potassium 3.5 mmoL/L (3.5-5.1)
[2022-10-25 06:37] LABS: Sodium 155 mmol/L (136-145)
[2022-10-25 06:39] LABS: POC Glucose,Bedside 241 (70-110)
[2022-10-25 06:39] LABS: POC Glucose,Bedside 163 (70-110)
[2022-10-25 06:39] LABS: POC Glucose,Bedside 249 (70-110)
[2022-10-25 06:39] LABS: POC Glucose,Bedside 315 (70-110)
[2022-10-25 07:36] LABS: Lymphocytes % 6 % (10-50); Monocytes % 4 % (2-9); Neutrophils % 90 % (42-76); Total Cells Counted 100
[2022-10-25 07:37] LABS: Platelet Estimate Slight Decrease; RBC Morphology Normal
--- NOTE | 2022-10-25 08:08 | HMH.PHAINT1 ---
Pharmacy Intervention Comments: Patient's home medications were reviewed and verified using patient's PCP note from 09/27/22, external resource, and patient. -Homar Pinto, PharmD student
[2022-10-25 08:16] LABS: Hemoglobin 13.9 g/dL (14.1-18.0)
--- NOTE | 2022-10-25 08:19 | CA_ITS ---
APPROVED REPORT EXAM: Comprehensive 2D, Doppler, and color-flow Echocardiogram Materials Inspector: Olivia Bahena RDCS Ht: 6 ft 0 in Wt: 182lbs BSA: 2.05 BP: 101/73 mmHg Indications: INCREASED TROP,COPD,DM,HLP,HTN,LUNG CA, SEPSIS LV Diastology E Decel Time 133.00 (160-240 msec) E/A Ratio 2.2 MED E' 11.00 (< 7 cm/sec) E'/MED E' Ratio 4.98 (>14) LAT E' 12.00 (<10 cm/sec) E/LAT E' Ratio 4.57 (>14) Mitral Valve MV E Max Karson. 55.00 (40-130 cm/s) MV A Velocity 25.00 (40-130 cm/s) E/A Ratio 2.17 MV Decel. Time 133.00 (160-240 ms) MV PHT 39.00 ms Left Ventricle The left ventricle is normal size. The left ventricular systolic function is normal. The left ventricular ejection fraction is within the normal range. There is normal LV segmental wall motion. The left ventricular diastolic function is normal. LVEF is 65%. Right Ventricle The right ventricle is normal size. The right ventricular systolic function is normal. Atria The left atrium size is normal. Right atrium is mildly dilated. Aortic Valve The aortic valve leaflets are mildly thickened. There is no aortic valvular stenosis. No aortic regurgitation is present. Mitral Valve The mitral valve is mildly thickened. No evidence of mitral valve stenosis. Trace mitral regurgitation. Tricuspid Valve The tricuspid valve is not well visualized. Pulmonic Valve The pulmonic valve is not well visualized. Great Vessels The aortic root is not well visualized. The IVC is not well visualized. Pericardium There is no pericardial effusion. Other Information Study Quality: Technically Difficult. Technically limited study due to poor accoustic windows, history of lung disease. Conclusion This was a technically difficult study. Limited windows were obtained. In the available images, there is normal biventricular systolic function. No significant AV or MV disease. The TV and PV are not well visualized. Electronically signed by : Viola Vazquez, 10/26/2022 13:44:34
--- NOTE | 2022-10-25 09:27 | EXP.PHA.CONS ---
Pharmacy Consult Date: 10/25/22 Time: 09:28 Referring provider: DR. MARTIN Reason for Consult:: VANCOMYCIN DOSE CHANGE Allergies Allergy/AdvReac Type Severity Reaction Status Date / Time No Known Allergies Allergy Verified 09/27/22 10:03 Home Medications Medication Instructions Recorded Confirmed Type amiodarone 200 mg tablet 200 mg PO DAILY Atrial fibrillation 10/24/22 10/24/22 History apixaban 5 mg tablet (Eliquis) 5 mg PO BID Blood Thinner 10/24/22 10/24/22 History docusate sodium 100 mg capsule 100 mg PO DAILY Constipation 10/24/22 10/24/22 History ergocalciferol (vitamin D2) 1,250 1,250 mcg PO DAILY Supplement 10/24/22 10/24/22 History mcg (50,000 unit) capsule loratadine 10 mg tablet 10 mg PO DAILY Allergy Symptoms 10/24/22 10/24/22 History pantoprazole 40 mg tablet,delayed 40 mg PO DAILY Acid Reflux 10/24/22 10/24/22 History release potassium chloride 10 mEq 10 meq PO DAILY Supplement 10/24/22 10/24/22 History tablet,extended release torsemide 20 mg tablet 20 mg PO BID Fluid 10/24/22 10/24/22 History umeclidinium 62.5 mcg-vilanterol 2 inh inhalation DAILY Breathing 10/24/22 10/24/22 History 25 mcg/actuation powdr for Problems inhalation (Anoro Ellipta) zolpidem 10 mg tablet 10 mg PO HS Psychiatric 10/24/22 10/24/22 History albuterol sulfate 90 mcg/actuation 1 puff inhalation Q4H PRN 10/25/22 10/25/22 History aerosol inhaler (Ventolin HFA) Shortness Of Breath Or Wheezing atorvastatin 20 mg tablet 20 mg PO DAILY Cholesterol 10/25/22 10/25/22 History azelastine 137 mcg (0.1 %) nasal 2 spray intranasal DAILY PRN 10/25/22 10/25/22 History spray aerosol Allergies carvedilol 6.25 mg tablet 6.25 mg PO BID blood pressure 10/25/22 10/25/22 History fluticasone propionate 50 2 spray intranasal DAILY PRN 10/25/22 10/25/22 History mcg/actuation nasal allergies spray,suspension lisinopril 10 mg tablet 10 mg PO DAILY Blood pressure 10/25/22 10/25/22 History morphine 30 mg immediate release 30 mg PO Q8H PRN Pain 10/25/22 10/25/22 History tablet morphine 30 mg tablet,extended 30 mg PO Q8H PRN Pain 10/25/22 10/25/22 History release nicotine 21 mg/24 hr daily 1 patch transdermal DAILY Nicotine 10/25/22 10/25/22 History transdermal patch replacement ondansetron HCl 4 mg tablet 4 mg PO BID PRN Nausea And Vomiting 10/25/22 10/25/22 History ropinirole 1 mg tablet 1 mg PO HS restless leg syndrome 10/25/22 10/25/22 History New Prescriptions to Start Prescriptions: Height: 1.83 m Weight: 82.781 kg Laboratory Results:: Laboratory Results - last 24 hr 10/24/22 14:40: WBC 19.5 H, RBC 5.75, Hgb 16.3, Hct 52.7 H, MCV 91.7, MCH 28.3, MCHC 30.8 L, RDW 14.6, Plt Count 158, MPV 11.6 H, Neut % (Auto) 90.6 H, Lymph % (Auto) 4.7 L, [place] % (Auto) 4.5, Eos % (Auto) 0.1, Baso % (Auto) 0.1, Neut # (Auto) 17.7 H, Lymph # (Auto) 0.9, [place] # (Auto) 0.9, Eos # (Auto) 0.0, Baso # (Auto) 0.0, Total Counted 100, Neutrophils % (Manual) 92 H, Lymphocytes % (Manual) 4 L, Monocytes % (Manual) 4, Platelet Estimate Normal, RBC Morphology Normal, Sodium 148 H, Potassium 4.3, Chloride 105, Carbon Dioxide 24, Anion Gap 23.3 H, BUN 56 H, Creatinine 1.80 H, Estimated Creat Clear 52, Estimated GFR 38 L, Est GFR ( Amer) 46 L, Glucose 892 H*, Lactate 3.5 H, Calcium 10.1, Total Bilirubin 1.1, AST 63 H, ALT 57, Alkaline Phosphatase 150 H, Total Creatine Kinase 443 H, Troponin I 0.11 H, C-Reactive Protein 111.0 H, NT-Pro-B Natriuret Pep 4190 H, Total Protein 7.2, Albumin 4.3, Globulin 2.9, Albumin/Globulin Ratio 1.5, Lipase 142, TSH 0.51, Thyroxine (T4) 10.4, Salicylates < 1.0 L, Acetaminophen < 10 L, Acetone Level Large 10/24/22 14:45: Urine Opiates Screen Positive H, Urine Methadone Screen Negative, Ur Barbituates Screen Negative, Ur Phencyclidine Scrn Negative, Ur Amphetamines Screen Negative, U Benzodiazepines Scrn Negative, Urine Cocaine Screen Negative, U Marijuana (THC) Screen Negative 10/24/22 14:50: Hemoglobin A1c 10.2 H 10/24/22 15:00:
--- NOTE | 2022-10-25 10:47 | EXP.CARD.CON ---
History of Present Illness History of Present Illness Consult date: 10/25/22 Chief complaint: AMS, found down at home, AMS History of present illness: This is a 62-year-old white gentleman who presented to the emergency department with an altered mental status. He has a known history of atrial fibrillation, COPD, CHF, hypertension, hyperlipidemia and extensive, metastatic small cell lung currently enrolled in hospice care. The patient was found down at home by his neighbor. There were stove burners on in the house and he was lying facedown in the carpet. The patient was found in a puddle of urine. He was extremely incoherent at the time that he was found and very confused. His EMS was called and the patient was brought to [facility] for further evaluation. The patient was found to have a glucose of 892 on arrival to the emergency department and diagnosed with DKA, he was then started on DKA protocol. The patient also had an elevated white count and tachycardia. The patient troponin was elevated so cardiology was consulted. He denies any chest pain or pressure. He states that he is short of breath all the time and this continues to worsen. He denies any lower extremity edema. He states that he feels a little confused in his head and sometimes dizzy. He denies any lower extremity edema. He denies any fever, chills, nausea, vomiting, diarrhea, PND or orthopnea. [facility] Disclaimer: The information contained in this section may have been updated after the patient was seen, as this information can be updated by other users. Medical History (Updated 10/25/22 @ 11:04 by Rona Ramirez APRN) Adenocarcinoma, lung Allergic rhinitis, unspecified Anxiety Asthma Atrial fibrillation CAD (coronary artery disease) CHF (congestive heart failure) COPD (chronic obstructive pulmonary disease) COPD mixed type Dyspnea on exertion Elevated troponin Hilar lymphadenopathy History of cataract History of left heart catheterization (LHC) History of stroke History of substance abuse Hyperlipidemia Hypertension Lung cancer Malignant neoplasm of right upper lobe of lung Mediastinal lymphadenopathy Metastatic lung cancer (metastasis from lung to other site) Neuroendocrine cancer Seizure disorder Shortness of Breath Smoking greater than 30 pack years Tobacco abuse Surgical History History of colonoscopy History of percutaneous coronary intervention History of tracheostomy Status post lobectomy of lung Family History Family history of cancer Family history of hypertension Family history of diabetes mellitus type II Family history of myocardial infarction Social History Smoking Status: Smoker, status unknown tobacco type: cigarettes packs per day: 1 smoking status start date: current smoker years smoked: 50 quit status: has quit before alcohol intake: never substance use type: former substance user counseling given: No (pt stated it was years ago and didnt want to bring it up ) current occupational status: retired Travel in the last 8 weeks: None household members: none housing: apartment lives independently: Yes marital status: single special justo needs: No agree to transfusion: No Review of Systems Review of Systems Review of systems:: pertinent systems reviewed and negative unless documented below Constitutional Constitutional: Reports system reviewed and no additional complaints, except as documented and Reports lethargy Eyes Eyes: Reports system reviewed and no additional complaints, except as documented ENT Ears, Nose, Mouth, and Throat: Reports system reviewed and no additional complaints, except as documented and Reports dizziness *Cardiovascular Cardiovascular: Reports system reviewed and no additional complaints, except as documente
[2022-10-25 11:12] LABS: POC Glucose,Bedside 380 (70-110)
--- NOTE | 2022-10-25 11:28 | CARE MANAGER ---
Addendum entered by Estela Vang RN 10/25/22 15:52: Patient apparently does not have any clothes or house keys withhim at the hospital. Per Hospice, we should call his line maintenance supervisor at discharge, and he will unlock door. Tamika notified of need to call, and number is [phone]. Addendum entered by Estela Vang RN 10/25/22 15:44: Patient's stay is a hospice related stay, payer change emailed to registration. Also, patient has requested meals on wheels, in which Hospice states that they will work on it. Original Note: Patient currently has Hospice through [facility]. They are coming to see patient and determine if admission is related. MARCO Mason
--- NOTE | 2022-10-25 14:44 | EXP.ACUTE.PN ---
Subjective *Date: 10/25/22 *Time: 16:22 Interval history: Patient is more alert this morning. Back to baseline mentation. Is frustrated that he was not able to eat in 3 days . Informed him he is only been with this for less than 1 day. He has limited recollection of yesterday and does not recall being brought to the hospital. Stating he is hurting and would like his pain regimen renewed. Also informed us today that he is on hospice for his lung cancer. Discussed his case with his hospice nurse. Improved glucose control. Stable oxygen requirement of 2 L this morning on exam. No nausea or vomiting. Ambulating independently. Medical Exam Vital signs and Labs for Last 24 Hours: Vital Signs Temp Pulse Pulse Pulse Pulse Resp BP 10/25/22 12:00 110 H 10/25/22 12:48 10/25/22 11:00 10/25/22 12:00 98.6 F 112 H 24 10/25/22 10:50 125 H 10/25/22 10:50 125 H 10/25/22 08:00 105 H 21 10/25/22 10:00 111 H 21 10/25/22 09:15 10/25/22 07:51 10/25/22 08:00 10/25/22 08:00 97.8 F 10/25/22 06:46 10/25/22 06:30 117 H 10/25/22 06:30 117 H 10/25/22 06:00 121 H 21 10/25/22 05:00 10/25/22 05:00 98.7 F 119 H 21 10/25/22 04:00 120 H 10/25/22 04:00 113 H 19 10/25/22 03:00 98.5 F 117 H 14 10/25/22 03:00 10/25/22 02:00 98.6 F 122 H 21 10/25/22 02:01 114 H 10/25/22 02:01 117 H 10/25/22 01:00 118 H 15 10/25/22 01:00 10/25/22 00:35 120 H 10/25/22 00:00 98.6 F 119 H 23 10/24/22 23:24 124 H 21 10/24/22 23:00 10/24/22 23:12 21 10/24/22 22:00 99.7 F H 125 H 21 10/24/22 21:20 120 H 10/24/22 21:00 10/24/22 21:00 100.2 F H 116 H 21 10/24/22 20:00 100.5 F H 116 H 21 10/24/22 19:30 100.5 F H 110 H 21 10/24/22 19:16 10/24/22 18:37 115 H 24 10/24/22 18:21 10/24/22 17:58 10/24/22 17:00 100.3 F H 115 H 24 10/24/22 17:00 10/24/22 17:15 111 H 22 10/24/22 16:48 99.9 F H 107 H 28 H 92/64 L 10/24/22 16:30 107 H 92/64 L 10/24/22 16:01 108 H 100/71 L 10/24/22 15:45 110 H 129/83 10/24/22 15:46 99.9 F H 120 H 28 H 129/83 10/24/22 15:06 99.7 F H 130 H 33 H 127/76 10/24/22 14:53 97.2 F L 131 H 38 H BP Pulse Ox O2 Del Method O2 Flow Rate 10/25/22 12:00 10/25/22 12:48 Room Air 10/25/22 11:00 Room Air 10/25/22 12:00 129/86 95 Room Air 10/25/22 10:50 10/25/22 10:50 10/25/22 08:00 116/83 94 L Nasal Cannula 3 10/25/22 10:00 100/70 L 95 Room Air 10/25/22 09:15 Nasal Cannula 3 10/25/22 07:51 Nasal Cannula 3 10/25/22 08:00 Nasal Cannula 2 10/25/22 08:00 10/25/22 06:46 Nasal Cannula 2 10/25/22 06:30 10/25/22 06:30 10/25/22 06:00 110/79 100 Nasal Cannula 2 10/25/22 05:00 Nasal Cannula 2 10/25/22 05:00 117/86 97 Nasal Cannula 2 10/25/22 04:00 10/25/22 04:00 129/98 H 97 Nasal Cannula 2 10/25/22 03:00 114/84 95 Nasal Cannula 2 10/25/22 03:00 Nasal Cannula 2 10/25/22 02:00 125/92 H 93 L Nasal Cannula 10/25/22 02:01 10/25/22 02:01 10/25/22 01:00 109/82 L 97 Nasal Cannula 2 10/25/22 01:00 Nasal Cannula 2 10/25/22 00:35 10/25/22 00:00 138/92 H 100 Nasal Cannula 2 10/24/22 23:24 93/79 L 95 Nasal Cannula 3 10/24/22 23:00 Nasal Cannula 3 10/24/22 23:12 10/24/22 22:00 106/82 L 95 Nasal Cannula 3 10/24/22 21:20 10/24/22 21:00 Nasal Cannula 3 10/24/22 21:00 113/77 97 Nasal Cannula 3 10/24/22 20:00 99/70 L 97 Nasal Cannula 3 10/24/22 19:30 119/84 97 Nasal Cannula 3 10/24/22 19:16 97 Nasal Cannula 3 10/24/22 18:37 103/77 L 96 Nasal Cannula 3 10/24/22 18:21 Nasal Cannula 3 10/24/22 17:58 96 Nasal Laly
[2022-10-25 17:01] LABS: POC Glucose,Bedside 272 (70-110)
--- NOTE | 2022-10-25 20:00 | PC.NURSE ---
193 PATIENT DEMANDING MS CONTIN NOW. INFORMED PATIENT THAT HIS MS MATTHEW WAS A 2100 MED AND THAT THE EARLIEST I COULD GIVE IT TO HIM WAS 1999. PATIENT HOSTILE AND ANGRY. USING PROFANITY. CALLING MEDICAL STAFF LIARS. SAID THE NURSE SAID HE COULD HAVE IT NOW. PATIENT VERY MANIPULATIVE. DR YU Patel AND DAY SHIFT NURSE HAD JUST ROUNDED ON HIM BEFORE I RECEIVED REPORT AND INFORMED HIM RE HIS PAIN MEDS. PATIENT WAS MEDICATED AT 1700 WITH NORCO 7.5MG AND WAS INFORMED THAT MS CONTIN WOULD BE GIVEN AT 1999. PATIENT DEMANDING TO LEAVE. CARROT GRADER INSPECTOR ATTEMPTED TO CALL HIS BROTHER AT THE NUMBER PROVIDED BY PATIENT BUT WAS UNABLE TO CONTACT HIM SO PHONE MESSAGE LEFT FOR THE BROTHER TO CALL THE HOSPITAL. PATIENT WANTED DISCHARGE PAPERS BUT ALL ROUND BUTCHER INFORMED HE WASNT BEING DISCHARGED BUT HE HAD SIGNED AMA AND A COPY OF AMA FORM WAS PROVIDED FOR PATIENT. PATIENT INSISTED BOTH IVs BE REMOVED . IV TO RIGHT AND LEFT ARMS REMOVED AND 2X2 DRSG SECURED WITH TAPE. CARROT GRADER INSPECTOR AND CHARGE NURSE BOTH PRESENT DURING THIS PATIENT ENCOUNTER. DR YU DOYLE NOTIFIED.
--- NOTE | 2022-10-25 20:22 | PC.NURSE ---
VS stable. Patient remains on room air. Patient calm and cooperative until 1700 in shift. Patient given hydrocodone for pain. Patient refused hydrocodone and stated he was leaving and not staying here. Hydrocodone wasted with Rosalba Sauceda RN. Patient then stated he would stay and hydrocodone administered. Patient then stated he was leaving again at [address] Huggins notified. Dr. Huggins came to bedside to speak with patient and patient stated he would stay for the night. IV antibiotics given. Subq insulin given for blood glucose levels. No other changes noted.
--- NOTE | 2022-10-25 20:42 | PC.NURSE ---
PATIENT LEFT MED SURG FLOOR AT 2039 VIA W/C ACCOMPANIED BY RN TRIAGE..
--- NOTE | 2022-10-25 20:42 | PC.NURSE ---
pt left floor with house at this time. Also left home phone number ([phone]) claiming to have lost jewStroho
--- NOTE | 2022-10-26 07:23 | EXP.DC.SUM ---
General Admission date:: 10/24/22 Discharge date: 10/25/22 HPI HPI HPI: Mr. Sanabria is a 62-year-old male with history of A-fib, COPD, CHF, hyperlipidemia, hypertension, lung cancer who presented to the ER with altered mental status. Patient was reportedly found down at home by his neighbor. Burners were on in his house and he was lying facedown on the carpet in a puddle of urine. Largely incoherent at that time. EMS was contacted and they brought the patient to [facility] for further evaluation. GCS of 15 on arrival. Fingerstick glucose read high . Labs obtained showing severely elevated glucose, high anion gap, and concern for DKA. Started on insulin drip and DKA protocol. Additionally has a white cell count of 19,000 and tachycardia meeting SIRS criteria. In the ER he complained of pain everywhere. Medicine was consulted for admission. After arriving to the floor, patient opens eyes in response to voice but not able to give meaningful answers to questions. Temperature is elevated to 100.3. Had prior been answering questions to nursing prior to my evaluation. Appears quite fatigued. Currently on 3 L nasal cannula oxygen, wears oxygen at home, unsure of his baseline. Admitted to stepdown unit for further management. Hospital Course Hospital Course Hospital Course: 62-year-old male with adenocarcinoma of the lung, hypertension, A-fib, chronic hypoxemic respiratory failure. Found to be in DKA with concern for sepsis on arrival to the ER. Started on DKA protocol, broad-spectrum antibiotics. Showed improvement in mentation and alertness was back to baseline after gap closure with DKA protocol. Transitioned to basal insulin with sliding scale. Patient however was not pleased with his pain regimen. Had poor insight and continued to disagree with regimen even after adjustments were made. We will attempt to bargain to stay if regimen was further adjusted. Informed him that we were not going to play games. Patient chose to leave AMA with no regard for his sepsis or DKA. Signed out and walked home. Problems addressed during admission as follows: Sepsis -Blood cultures and urine cultures obtained. Cultures remained negative at time of patient's elopement from the hospital. He was initially on broad-spectrum antibiotics with cefepime, vancomycin, Flagyl. No antibiotics were sent at discharge. Continued to have impressive leukocytosis, 24,000 on last day of admission. Will discuss case with his hospice nurse about possible need to evaluate for continued antibiotics in the outpatient setting. DKA New onset diabetes High anion gap metabolic acidosis -A1c elevated at 10.2 on admission. High anion gap was present on admission with glucose above 800. Responded well to insulin drip. Started on basal insulin. Was due to get 25 units of insulin glargine however patient left before receiving dosage. Patient on hospice for his lung cancer. Discussed case with his hospice nurse. Clarified his pain regimen. Goal is to go back to hospice when he is stable for discharge. -Resumed home pain regimen with scheduled extended release morphine 30 mg twice daily. Has hydrocodone 5 mg for breakthrough pain. - Continue DuoNebs every 4 hours as needed. A-fib -Cardiology consulted, appreciate their assistance in care, discussed case and his A-fib. Was started on metoprolol. Due to increase to 25 mg twice daily, however patient left before receiving 25 mg nighttime dose. Continued his amiodarone 200 mg daily. Continue Eliquis 5mg twice daily Patient left AMA. Reached out to hospice nurse to discuss patient's case, recommendations for his A-fib and diabetes, and decrease risk for readmission. Exam Data for Last 24 hours Vital signs and Labs for Last 24 Hours: Temp Pulse Resp BP Pulse Ox O2 Del Method O2 Flow Rate 97.6 F 110 H 24 132/80 98 Room Air 3 10/25/22 16:00 10/25/22 16:40 10/25/22 16:00 10/25/22 16:00 10/25/22 16:09/29
== END 2022-10-25 20:40 | disposition left against medical advice (07) | DRG 637 ==
LOC: ER 15:23 → 2ND 15:55
PROVIDERS: Nurse Practitioner Critical Care Medicine; Admitting Provider Internal Medicine Adolescent Medicine; Emergency Provider Emergency Medicine; Visit Provider Internal Medicine Adolescent Medicine
DX: A41.9 Sepsis, unspecified organism (principal); E11.10 Type 2 diabetes mellitus with ketoacidosis without coma; J96.21 Acute and chronic respiratory failure with hypoxia; C34.11 Malignant neoplasm of upper lobe, right bronchus or lung; N17.9 Acute kidney failure, unspecified; C7A.8 Other malignant neuroendocrine tumors; J44.9 Chronic obstructive pulmonary disease, unspecified; Z51.5 Encounter for palliative care; I25.118 Atherosclerotic heart disease of native coronary artery with other forms of angina pectoris; F17.210 Nicotine dependence, cigarettes, uncomplicated; Z79.01 Long term (current) use of anticoagulants; Z79.52 Long term (current) use of systemic steroids; I11.0 Hypertensive heart disease with heart failure; I50.9 Heart failure, unspecified; I48.91 Unspecified atrial fibrillation; Z79.4 Long term (current) use of insulin; E78.2 Mixed hyperlipidemia
CPT/HCPCS: 36415; 51702; 70450; 71045; 71275; 72125; 74177; 80048; 80053; 80305; 80329; 81001; 82009; 82140; 82375; 82550; 82803; 82962; 83036; 83605; 83690; 83735; 83880; 84436; 84443; 84484; 85007; 85025; 86140; 87040; 87086; 93005; 93306; 94640; 99291; Q9967